=== PATIENT | male | born 1955 | race Caucasian/White ===

== ENCOUNTER → 2016-04-30 | Outpatient (CLI) | payer OTHER ==
--- NOTE | 2016-04-30 11:05 | XR ---
Cervical spine HISTORY: Neck pain 5 views of the cervical spine Correlation CT soft tissue neck third of September 2015 Spondylosis is present at C4-5, C5-6 and C6-7 with associated loss of disc height. Cervical vertebral bodies show preserved height and bone mineralization, alignment is near anatomic. Facet arthropathy changes are present. Prevertebral soft tissues are normal. Multilevel foraminal encroachment is prese nt bilaterally. IMPRESSION: Degenerative disc disease, foraminal encroachment, facet arthropathy.
== END ==
LOC: RADXRMAIN 09:19
PROVIDERS: ATTEND Family Medicine
DX: M50.30 Other cervical disc degeneration, unspecified cervical region (principal); M46.92 Unspecified inflammatory spondylopathy, cervical region
CPT/HCPCS: 72050

== ENCOUNTER → 2017-02-25 | Outpatient (CLI) | payer OTHER ==
--- NOTE | 2017-02-25 10:26 | US ---
EXAMINATION TYPE: US abdomen complete DATE OF EXAM: 02/25/2017 COMPARISON: US & CT CLINICAL HISTORY: D73.89 Other Disease of Spleen. History of splenic lesions EXAM MEASUREMENTS: Liver Length: 16.7 cm Gallbladder Wall: 0.3 cm CBD: 0.4 cm Spleen: 13.8 cm Right Kidney: 10.9 x 5.9 x 5.9 cm Left Kidney: 12.2 x 6.4 x 5.2 cm Large pt body habitus with excessive overlying bowel gas, difficult scan Pancreas: Obscured by bowel gas Liver: Limited visualization appeared wnl Gallbladder: Appeared wnl, best visualized in LLD position Evidence for sonographic Ann's sign: No CBD: wnl Spleen: Enlarged with multiple granulomas with 2 solid, hypoechoic lesions, both increased in size s terry previous 1)= 2.9 x 2.4 x 2.9 cm 2)= 1.7 x 1.5 x 1.5 cm Right Kidney: wnl Left Kidney: Questionable vague area lateral= 3.0 x 2.7 x 2.7 cm mass vs. Dromedary hump Upper IVC: wnl Abd Aorta: Proximal portion obscured by overlying bowel gas, mid and distal portions wnl The liver is homogenous. The intrahepatic portion of the IVC and proximal abdominal aorta are within normal limits. There is no evidence of cholelithiasis. Common bile duct is unremarkable. The visu alized portions of the pancreas are homogenous. Kidneys are symmetric and free of hydronephrosis. Pr obable dromedary hump of left kidney however this can be confirmed with CT. IMPRESSION: 1. Splenomegaly with multiple granulomas. Previously identified splenic lesions are not clearly galileo cterized at this time. Consider CT correlation. 2. Probable dromedary hump left kidney although I cannot exclude mass. Again CT would be of value.
== END | disposition home or self-care (01) ==
LOC: RADUSWWP 09:41
PROVIDERS: ATTEND Family Medicine
DX: R16.1 Splenomegaly, not elsewhere classified (principal); D73.89 Other diseases of spleen; Z88.1 Allergy status to other antibiotic agents
CPT/HCPCS: 76700

== ENCOUNTER 2017-04-24 08:56 | Inpatient (IN) | payer OTHER ==
[2017-04-24] MEDS ORDERED: MORPHINE SULFATE 4 MG/ML SYRINGE IVP STA (09:16)
[2017-04-24] MEDS ORDERED: RX INFO: IV CONTRAST WAS GIVEN 1 EACH MISC MISCELLANE PRN (09:16)
[2017-04-24] MEDS ORDERED: ONDANSETRON 4 MG/2 ML VIAL IVP STA (09:16)
[2017-04-24] MEDS ORDERED: SODIUM CHLORIDE 0.9% 1,000 ML IV STA (09:16)
[2017-04-24 10:01] LABS: Basophils % (A) 0 %; Eosinophils # (A) 0.1 k/uL (0-0.7); Eosinophils % (A) 0 %; HCT 47.2 % (39.0-53.0); HGB 15.6 gm/dL (13.0-17.5); Lymphocytes % (A) 9 %; MCH 30.3 pg (25.0-35.0); MCV 91.8 fL (80.0-100.0); Monocytes # (A) 0.5 k/uL (0-1.0); Monocytes % (A) 4 %; Neutrophils # (A) 9.1 k/uL (1.3-7.7); Neutrophils % (A) 86 %; Platelet Count 237 k/uL (150-450); RBC 5.14 m/uL (4.30-5.90); RDW 12.8 % (11.5-15.5); WBC 10.6 k/uL (3.8-10.6)
[2017-04-24 10:10] LABS: Prothrombin Time 9.6 sec (9.0-12.0)
[2017-04-24 10:15] LABS: ALT 27 U/L (21-72); AST 20 U/L (17-59); Albumin 4.4 g/dL (3.5-5.0); Alkaline Phosphatase 136 U/L (38-126); Amylase 85 U/L (30-110); Anion Gap 10 mmol/L; Blood Urea Nitrogen 18 mg/dL (9-20); Calcium 10.1 mg/dL (8.4-10.2); Carbon Dioxide 26 mmol/L (22-30); Chloride 106 mmol/L (98-107); Glucose 122 mg/dL (74-99); Lipase 107 U/L (23-300); Potassium 4.8 mmol/L (3.5-5.1); Sodium 142 mmol/L (137-145); Total Bilirubin 0.5 mg/dL (0.2-1.3); Total Protein 7.7 g/dL (6.3-8.2)
--- NOTE | 2017-04-24 10:22 | ED ---
Abdominal Pain HPI - General Chief Complaint: Abdominal Pain Stated Complaint: Abd Pain Time Seen by Provider: 04/24/17 08:59 Source: patient, EMS, RN notes reviewed Mode of arrival: EMS Limitations: no limitations - History of Present Illness Initial Comments: 61-year-old male presents emergency Department with chief complaint of abdominal pain. Patient's been having on and off issues for a while but states his pain is different. He states it's in his mid abdomen and feels like his prior obstructions. He does state he is passing gas and feels that he may need to go to the bathroom now. Patient denies any dysuria but has had urinary frequency. No nausea no vomiting. Denies fever or chills. Patient states he does have some lesions on his spleen in which she's had ultrasounds for. Patient states that they're thinking it may just be a hemangioma. Patient states that he saw a surgeon at [facility]. Patient also states that he is scheduled for an MRI. Patient denies any chest pain or shortness of breath. - Related Data Home Medications Medication Instructions Recorded Confirmed Aspirin EC [Ecotrin Low Dose] 81 mg PO DAILY 04/24/17 04/24/17 Cholecalciferol (Vitamin D3) 2,000 unit PO DAILY 04/24/17 04/24/17 [Vitamin D3] Valsartan [Diovan] 80 mg PO DAILY 04/24/17 04/24/17 Allergies Allergy/AdvReac Type Severity Reaction Status Date / Time amoxicillin AdvReac Diarrhea Verified 04/24/17 09:22 Review of Systems ROS Statement: Those systems with pertinent positive or pertinent negative responses have been documented in the HPI. ROS Other: All systems not noted in ROS Statement are negative. Past Medical History Past Medical History: CVA/TIA, GERD/Reflux, Sleep Apnea/CPAP/BIPAP Additional Past Medical History / Comment(s): ?TIA per pt, "leaky valves", SOB w /activity, recent hospitalization for partial bowel obstruction in [facility] History of Any Multi-Drug Resistant Organisms: None Reported Additional Past Surgical History / Comment(s): hiatal hernia repair Past Anesthesia/Blood Transfusion Reactions: No Reported Reaction Past Psychological History: No Psychological Hx Reported Smoking Status: Never smoker Past Alcohol Use History: Occasional Past Drug Use History: None Reported General Exam General appearance: alert, in no apparent distress Head exam: Present: atraumatic, normocephalic, normal inspection Eye exam: Present: normal appearance, PERRL, EOMI. Absent: scleral icterus, conjunctival injection, periorbital swelling Neck exam: Present: normal inspection, full ROM. Absent: tenderness, meningismus, lymphadenopathy Respiratory exam: Present: normal lung sounds bilaterally. Absent: respiratory distress, wheezes, rales, rhonchi, stridor Cardiovascular Exam: Present: regular rate, normal rhythm, normal heart sounds. Absent: systolic murmur, diastolic murmur, rubs, gallop, clicks GI/Abdominal exam: Present: soft, tenderness (Mild mid abdominal tenderness), normal bowel sounds. Absent: distended, guarding, rebound, rigid Back exam: Absent: CVA tenderness (R), CVA tenderness (L) Skin exam: Present: warm, dry, intact, normal color. Absent: rash Course Vital Signs 04/24/17 08:58 Temperature 97.5 F L Pulse Rate 71 Respiratory 19 Rate Blood Pressure 124/67 O2 Sat by Pulse 97 Oximetry Medical Decision Making - Lab Data Result diagrams: 04/24/17 09:40 04/24/17 09:40 Lab Results 04/24/17 04/24/17 04/24/17 Range/Units 09:40 09:40 09:40 WBC 10.6 (3.8-10.6) k/uL RBC 5.14 (4.30-5.90) m/uL Hgb 15.6 (13.0-17.5) gm/dL Hct 47.2 (39.0-53.0) % MCV 91.8 (80.0-100.0) fL MCH 30.3 (25.0-35.0) pg MCHC 33.0 (31.0-37.0) g/dL RDW 12.8 (11.5-15.5) % Plt Count 237 (150-450) k/uL Neutrophils % 86 % Lymphocytes % 9 % Monocytes % 4 % Eosinophils % 0 % Basophils % 0 % Neutrophils # 9.1 H (1.3-7.7) k/uL Lymphocytes # 1.0 (1.0-4.8) k/uL Monocytes # 0.5 (0-1.0) k/uL Eosinophils # 0.1 (0-0.7) k/uL Basophils # 0.0 (0-0.2) k/uL PT 9.6 (9.0-12.0) sec INR 1.0 (<1.2) APTT 23.0 (22.0-30.0) sec Sodium 142 (137-145) mmol/L Potassium 4.8 (3.5-5.1) mmol/L Chloride 106 (98-107) mmol/L Carbon Dioxide 26 (22-30) mmol/L Anion Gap 10 mmol/L BUN 18 (9-20) mg/dL Creatinine 1.00 (0.66-1.25) mg/dL Est GFR (CKD-EPI)AfAm >90 (>60 ml/min/1.73 sqM) Est GFR (CKD-EPI)NonAf 80 (>60 ml/min/1.73 sqM) Glucose 122 H (74-99) mg/dL Plasma Lactic Acid Kenny (0.7-2.0) mmol/L Calcium 10.1 (8.4-10.2) mg/dL Total Bilirubin 0.5 (0.2-1.3) mg/dL AST 20 (17-59) U/L ALT 27 (21-72) U/L Alkaline Phosphatase 136 H (38-126) U/L Total Protein 7.7 (6.3-8.2) g/dL Albumin 4.4 (3.5-5.0) g/dL Amylase 85 (30-110) U/L Lipase 107 (23-300) U/L 04/24/17 Range/Units 09:40 WBC (3.8-10.6) k/uL RBC (4.30-5.90) m/uL Hgb (13.0-17.5) gm/dL Hct (39.0-53.0) % MCV (80.0-100.0) fL MCH (25.0-35.0) pg MCHC (31.0-37.0) g/dL RDW (11.5-15.5) % Plt Count (150-450) k/uL Neutrophils % % Lymphocytes % % Monocytes % % Eosinophils % % Basophils % % Neutrophils # (1.3-7.7) k/uL Lymphocytes # (1.0-4.8) k/uL Monocytes # (0-1.0) k/uL Eosinophils # (0-0.7) k/uL Basophils # (0-0.2) k/uL PT (9.0-12.0) sec INR (<1.2) APTT (22.0-30.0) sec Sodium (137-145) mmol/L Potassium (3.5-5.1) mmol/L Chloride (98-107) mmol/L Carbon Dioxide (22-30) mmol/L Anion Gap mmol/L BUN (9-20) mg/dL Creatinine (0.66-1.25) mg/dL Est GFR (CKD-EPI)AfAm (>60 ml/min/1.73 sqM) Est GFR (CKD-EPI)NonAf (>60 ml/min/1.73 sqM) Glucose (74-99) mg/dL Plasma Lactic Acid Kenny 1.0 (0.7-2.0) mmol/L Calcium (8.4-10.2) mg/dL Total Bilirubin (0.2-1.3) mg/dL AST (17-59) U/L ALT (21-72) U/L Alkaline Phosphatase (38-126) U/L Total Protein (6.3-8.2) g/dL Albumin (3.5-5.0) g/dL Amylase (30-110) U/L Lipase (23-300) U/L Disposition Clinical Impression: Small bowel obstruction Disposition: ADMITTED IP TO THIS [facility] Condition: Stable Referrals: Jefferson Horowitz MD [Primary Care Provider] - 1-2 days
--- NOTE | 2017-04-24 10:41 | CT ---
EXAMINATION TYPE: CT abdomen pelvis w con DATE OF EXAM: 04/24/2017 COMPARISON: 11/22/2014 HISTORY: 61-year-old male complains of periumbilical pain, left flank pain, frequency urinating, loos e stool that has become constipation, and near syncope. TECHNIQUE: Contiguous axial scanning of the abdomen and pelvis following administration of 100 ml Omn ipaque 300 IV contrast. Delayed images through the kidneys and coronal/sagittal reconstructions perf ormed. CT DLP: 1751 mGycm Automated exposure control for dose reduction was used. FINDINGS: Heart is normal size without pericardial effusion. Some strandy atelectasis in the lower lungs. No pl eural effusion. Redemonstrated moderate-sized hernia. Hypervascular focus measuring 1.6 cm in the left lower lobe is unchanged suggesting an area of vascul ar shunting or flash filling hemangioma. Portal venous system is patent. No biliary ductal dilatation . Gallbladder, adrenal glands, kidneys, and pancreas appear within normal limits. Numerous calcified granulomas spleen. Round hypervascular lesions also within the spleen, approximate ly 3 measuring up to 2.5 cm following the blood pool on delayed kidney images suggesting hemangiomas, unchanged from 2014. Hilar splenule is present. Dilated small bowel loops measure up to 5.4 cm with air-fluid levels. There is a transition point in the posterior left upper to mid abdomen, axial image 26 and coronal im age 54 just anterior and inferior to the pancreatic tail level. The ileum beyond this level is collap sed. No free air or free fluid. Normal appendix. Some liquid stool within the colon. Diffuse colonic diverticulosis without pericolon ic inflammatory change. Bladder distended. Prostate gland measures 4.9 cm wide. No abnormal fluid collection the pelvis or pe lvic lymphadenopathy. Moderate-sized fat-containing indirect right inguinal hernia hernia. Partially visualized right-sided hydrocele. Bones: Degenerative changes at the SI joints. Endplate spondylosis lower thoracic spine. Hemangioma o f the L1 vertebral body. IMPRESSION: 1. HIGH-GRADE SMALL BOWEL OBSTRUCTION. TRANSITION POINT AT THE DISTAL THIRD SMALL BOWEL BUT LOCATED I N THE LEFT UPPER TO MID ABDOMEN AT THE LEVEL JUST BELOW AND ANTERIOR TO THE PANCREATIC TAIL. 2. SMALL BOWEL LOOPS ARE DILATED UP TO 5.4 CM. 3. COLONIC DIVERTICULOSIS WITHOUT ACUTE DIVERTICULITIS. 4. MODERATE-SIZED HERNIA, FLASH FILLING HEMANGIOMA LEFT LIVER LOBE, AND SUSPECT ADDITIONAL 3 HEMANGIO MAS IN THE SPLEEN, ALL STABLE FROM 2014. 4. MODERATE-SIZED FATTY INDIRECT RIGHT INGUINAL HERNIA.
[2017-04-24] MEDS ORDERED: ONDANSETRON 4 MG/2 ML VIAL IVP PRN (11:31)
[2017-04-24] MEDS ORDERED: NALOXONE 0.4 MG/ML 1 ML VIAL IV PRN (11:31)
[2017-04-24] MEDS ORDERED: MORPHINE SULFATE 4 MG/ML SYRINGE IV PRN (11:31)
[2017-04-24 14:28] VITALS: BMI 34.4
[2017-04-24] MEDS: PIPERACILLIN-TAZOBACTAM 3.375 GM in DEXTROSE/WATER 1 50ML.BAG IVPB SCH ×2 (14:36→23:14)
[2017-04-24] MEDS: SODIUM CHLORIDE 0.9% 1,000 ML IV SCH ×3 (14:37→16:20)
[2017-04-24 17:15] LABS: Appearance,Urine Clear (Clear); Bacteria,Urine Rare /hpf; Bilirubin,Urine Negative (Negative); Blood,Urine Negative (Negative); Color,Urine Yellow; Glucose,Urine (UA) Negative (Negative); Ketones,Urine Negative (Negative); Leukocyte Esterase,Urine Negative (Negative); Mucus,Urine Few /hpf; Nitrite,Urine Negative (Negative); PH, Urine 5.5 (5.0-8.0); Protein,Urine 1+ (Negative); RBC,Urine 1 /hpf (0-5); Urobilinogen,Urine <2.0 mg/dL (<2.0); WBC,Urine 1 /hpf (0-5)
[2017-04-24 17:18] LABS: Specific Gravity,Urine >1.050 (1.001-1.035)
[2017-04-24 17:21] LABS: Glucose,Whole Blood 93 mg/dL (75-99)
[2017-04-24] MEDS ORDERED: KETOROLAC 30 MG/ML 1 ML VIAL IVP PRN (20:46)
[2017-04-24] MEDS ORDERED: KETOROLAC 60 MG/2 ML VIAL IVP STA (20:48)
[2017-04-24] MEDS ORDERED: KETOROLAC 30 MG/ML 1 ML VIAL IVP STA (21:03)
[2017-04-24 21:07] LABS: Glucose,Whole Blood 99 mg/dL (75-99)
[2017-04-25] MEDS: SODIUM CHLORIDE 0.9% 1,000 ML IV SCH ×4 (00:46→18:51)
--- NOTE | 2017-04-25 07:25 | P.GSCN ---
History of Present Illness Consult date: 04/25/17 History of present illness: 61-year-old male presented to the emergency department complaining of severe abdominal pain. He states that he was also having a lot of flatus at that time. He denies any nausea or any emesis episodes. He states that he has had obstructive symptoms in the past and this felt similar. He states in the past he has had NG tube placed with success of resolving his obstruction. Upon arriving in the emergency department the patient stated he had a large bowel movement that was mostly liquid. He did have a CT of the abdomen that was performed that did show a small bowel obstructive process. He did refuse a NG tube during this admission. Since his admission, the patient states he has had 4 additional bowel movements. He states that his abdominal pain is relieved. He states his distention is now relieved. He denies feeling any fevers, chills , chest pain or shortness of breath. The patient states that he has had a previous surgery of a hiatal hernia repair in the past. He states that he also has been found to have a hemangioma of the spleen. He was scheduled for an MRI on 04/26/2017 to follow the size of this area and will have the MRI as an inpatient due to his admission. He states his last colonoscopy was 3 years ago. Review of Systems All systems: negative Past Medical History Past Medical History: GERD/Reflux, Sleep Apnea/CPAP/BIPAP Additional Past Medical History / Comment(s): Past bowel obstructions, spleen lesions pt has been seen at [facility] and they are thought to be hemangiomas-to have MRI this Friday at [facility], [facility] with CPAP, chronic low back pain, bilateral leg varicosities, gastritis, diverticulitis, benign colon polypectomies, "leaky valves", SOB w/activity, History of Any Multi-Drug Resistant Organisms: None Reported Additional Past Surgical History / Comment(s): hiatal hernia repair, 2013 EGD with bx, colonoscopies/benign polypectomies Past Anesthesia/Blood Transfusion Reactions: No Reported Reaction Smoking Status: Former smoker - Past Family History Father Family Medical History: No Reported History Additional Family Medical History / Comment(s): Father is healthy and is 92 yrs old. Mother Family Medical History: No Reported History Additional Family Medical History / Comment(s): Mother is healthy and is 90yrs. Medications and Allergies Home Medications Medication Instructions Recorded Confirmed Type Aspirin EC [Ecotrin Low Dose] 81 mg PO DAILY 04/24/17 04/24/17 History Cholecalciferol (Vitamin D3) 2,000 unit PO DAILY 04/24/17 04/24/17 History [Vitamin D3] Valsartan [Diovan] 80 mg PO DAILY 04/24/17 04/24/17 History Allergies Allergy/AdvReac Type Severity Reaction Status Date / Time amoxicillin AdvReac Diarrhea Verified 04/24/17 09:22 Surgical - Exam Osteopathic Statement: *. No significant issues noted on an osteopathic structural exam other than those noted in the History and Physical/Consult. Vital Signs Temp Pulse Resp BP Pulse Ox 97.5 F L 71 19 124/67 97 04/24/17 08:58 04/24/17 08:58 04/24/17 08:58 04/24/17 08:58 04/24/17 08:58 - General well nourished, no distress - Eyes PERRL - ENT no hearing loss - Neck no masses, trachea midline - Respiratory No difficulty with respiration - Abdomen Soft, nontender, nondistended, no rebound, no guarding - Neurologic normal sensation - Psychiatric oriented to time, oriented to person, oriented to place Results - Labs 04/24/17 09:40 04/24/17 09:40 Abnormal Lab Results - Last 24 Hours (Table) 04/24/17 04/24/17 04/24/17 Range/Units 09:40 09:40 15:48 Neutrophils # 9.1 H (1.3-7.7) k/uL Glucose 122 H (74-99) mg/dL Alkaline Phosphatase 136 H (38-126) U/L Ur Specific [place] >1.050 H (1.001-1.035) Urine Protein 1+ H (Negative) Urine Bacteria Rare H (None) /hpf Urine Mucus Few H (None) /hpf Diabetes panel 04/24/17 Range/Units 09:40 Sodium 142 (137-145) mmol/L Potassium 4.8 (3.5-5.1) mmol/L Chloride 106 (98-107) mmol/L Carbon Dioxide 26 (22-30) mmol/L BUN 18 (9-20) mg/dL Creatinine 1.00 (0.66-1.25) mg/dL Glucose 122 H (74-99) mg/dL Calcium 10.1 (8.4-10.2) mg/dL AST 20 (17-59) U/L ALT 27 (21-72) U/L Alkaline Phosphatase 136 H (38-126) U/L Total Protein 7.7 (6.3-8.2) g/dL Albumin 4.4 (3.5-5.0) g/dL Calcium panel 04/24/17 Range/Units 09:40 Calcium 10.1 (8.4-10.2) mg/dL Albumin 4.4 (3.5-5.0) g/dL Pituitary panel 04/24/17 Range/Units 09:40 Sodium 142 (137-145) mmol/L Potassium 4.8 (3.5-5.1) mmol/L Chloride 106 (98-107) mmol/L Carbon Dioxide 26 (22-30) mmol/L BUN 18 (9-20) mg/dL Creatinine 1.00 (0.66-1.25) mg/dL Glucose 122 H (74-99) mg/dL Calcium 10.1 (8.4-10.2) mg/dL Adrenal panel 04/24/17 Range/Units 09:40 Sodium 142 (137-145) mmol/L Potassium 4.8 (3.5-5.1) mmol/L Chloride 106 (98-107) mmol/L Carbon Dioxide 26 (22-30) mmol/L BUN 18 (9-20) mg/dL Creatinine 1.00 (0.66-1.25) mg/dL Glucose 122 H (74-99) mg/dL Calcium 10.1 (8.4-10.2) mg/dL Total Bilirubin 0.5 (0.2-1.3) mg/dL AST 20 (17-59) U/L ALT 27 (21-72) U/L Alkaline Phosphatase 136 H (38-126) U/L Total Protein 7.7 (6.3-8.2) g/dL Albumin 4.4 (3.5-5.0) g/dL - Imaging CT scan - abdomen: report reviewed, image reviewed CT scan - pelvis: report reviewed, image reviewed Assessment and Plan (1) Small bowel obstruction Narrative/Plan: The small bowel obstruction seems to be relieving with 4 bowel movements. The patient states he feels much better and has much decreased distention. He is scheduled for an MRI this morning and is required to be nothing by mouth for this exam. After this is completed, we will advance him to a clear liquid diet and likely advance his diet as tolerated. No plan for acute surgical intervention at this time. We will continue to follow. Thank you for this consultation. We look forward in providing in this patient' s care. Current Visit: Yes Status: Acute Code(s): K56.609 - UNSP INTESTNL OBST, UNSP TO PARTIAL VERSUS COMPLETE OBST SNOMED Code(s): 938805918
[2017-04-25] MEDS: PIPERACILLIN-TAZOBACTAM 3.375 GM in DEXTROSE/WATER 1 50ML.BAG IVPB SCH (07:30)
[2017-04-25] MEDS: PANTOPRAZOLE 40 MG/10 ML VIAL IVP SCH (07:30)
--- NOTE | 2017-04-25 10:06 | P.HPIM ---
<Clair Cervantes - Last Filed: 04/25/17 10:05> History of Present Illness H&P Date: 04/25/17 Chief Complaint: abdominal pain 61-year-old male who presented to the emergency room with a chief complaint of abdominal pain. The patient has a history of previous bowel obstructions and describes the pain to be similar as those previous experiences. the patient states he has been passing gas. While in the emergency room, he did have a loose bowel movement. A NG tube was ordered but the patient refused. Patient denies chest pain or pressure. Denies shortness of breath. Denies nausea or vomiting. Denies fever. Denies recent weight loss. The patient has a history of previous bowel obstructions, obstructive sleep apnea requiring CPAP, chronic low back pain, gastritis, diverticulitis, hiatal hernia repair, and gastroesophageal reflux disease. Patient also has a history of some lesions on his spleen that were thought to be hemangiomas. The patient was scheduled for an MRI this Friday, which we will complete during this hospital admission. CT scan of abdomen and pelvis: High-grade small bowel obstruction. Transition point at the distal third small bowel but located in the left upper to mid abdomen at the level just below and anterior to the pancreatic tail. Colonic diverticulosis without acute diverticulitis. Moderate sized hernia, flash filling hemangioma left liver lobe and suspect additional 3 hemangiomas in the spleen. Moderate sized indirect right inguinal hernia. Laboratory data: WBC 10.6. Hemoglobin 15.6. Platelet count 237. Sodium 142. Potassium 4.8. BUN 18. Creatinine 1.00. GFR 80. Glucose 122. Lactic acid 1.0 The patient was admitted to the hospital under the care of Dr. Gray. Consultations were placed to Dr. Aguilar. Review of Systems GENERAL: Patient denies fever. Denies chills. EYES: Denies blurred vision. Denies vision changes. Denies eye pain. EARS, NOSE, MOUTH, & THROAT: Denies headache. Denies sore throat. Denies ear pain. RESPIRATORY: Denies cough. Denies shortness of breath. Denies sputum production. Denies hemoptysis. CARDIOVASCULAR: Denies chest pain or pressure. Denies palpitations. Denies arrhythmias. GASTROINTESTINAL: Positive for abdominal pain, which is resolving. Denies diarrhea. Denies constipation. Denies nausea. Denies vomiting. Denies heartburn. Denies blood in the stool. GENITOURINARY: Denies urinary frequency. Denies burning. Denies dysuria. Denies cloudy urine. Denies blood in the urine. MUSCULOSKELETAL: Denies myalgias. Denies joint swelling. Denies decreased range of motion beyond patients baseline. INTEGUMENTARY: Denies pruitis. Denies rash. PSYCHIATRIC: Denies suicidal or homicial ideations. ENDOCRINE: Denies weight change. Denies polydipsia. Denies polyuria. HEMATOLOGIC: Denies bleeding disorders. Past Medical History Past Medical History: GERD/Reflux, Sleep Apnea/CPAP/BIPAP Additional Past Medical History / Comment(s): Past bowel obstructions, spleen lesions pt has been seen at [facility] and they are thought to be hemangiomas-to have MRI this Friday at [facility], VINICIUS with CPAP, chronic low back pain, bilateral leg varicosities, gastritis, diverticulitis, benign colon polypectomies, "leaky valves", SOB w/activity, History of Any Multi-Drug Resistant Organisms: None Reported Additional Past Surgical History / Comment(s): hiatal hernia repair, 2013 EGD with bx, colonoscopies/benign polypectomies Past Anesthesia/Blood Transfusion Reactions: No Reported Reaction Smoking Status: Former smoker - Past Family History Father Family Medical History: No Reported History Additional Family Medical History / Comment(s): Father is healthy and is 92 yrs old. Mother Family Medical History: No Reported History Additional Family Medical History / Comment(s): Mother is healthy and is 90yrs. Medications and Allergies Home Medications Medication Instructions Recorded Confirmed Type Aspirin EC [Ecotrin Low Dose] 81 mg PO DAILY 04/24/17 04/24/17 History Cholecalciferol (Vitamin D3) 2,000 unit PO DAILY 04/24/17 04/24/17 History [Vitamin D3] Valsartan [Diovan] 80 mg PO DAILY 04/24/17 04/24/17 History Allergies Allergy/AdvReac Type Severity Reaction Status Date / Time amoxicillin AdvReac Diarrhea Verified 04/24/17 09:22 Physical Exam Vitals: Vital Signs Temp Pulse Pulse Resp BP BP Pulse Ox 04/25/17 07:35 79 18 04/25/17 07:00 96.7 F L 79 18 126/68 98 04/24/17 23:00 97.9 F 90 18 124/69 94 L 04/24/17 15:30 83 16 04/24/17 14:16 97.1 F L 83 16 105/61 94 L 04/24/17 13:03 98.4 F 76 20 118/62 100 04/24/17 08:58 97.5 F L 71 19 124/67 97 Intake and Output 04/24/17 04/25/17 04/25/17 22:59 06:59 14:59 Intake Total 0 0 Balance 0 0 Intake: Oral 0 0 Other: Voiding Method Toilet Toilet Toilet # Voids 1 0 0 # Bowel Movements 2 2 Weight 108.862 kg 108.862 kg 108.862 kg GENERAL: This is a 61-year-old male in no apparent distress at the time of examination. Pleasant and cooperative. HEENT: Head is atraumatic, normocephalic. Pupils are equal, round, and reactive to light. Sclerae anicteric. Conjunctivae are clear. Mucus membranes of the mouth are moist. Neck is supple. RESPIRATORY: Clear to ausculation. No wheezes, rales, or rhonchi. No use of accessory muscles. Patient maintaining oxygen saturation greater than 92%. No chest wall tenderness is noted on palpation or with deep breathing. CARDIOVASCULAR: Regular rate and rhythm. S1 and S2 noted. No systolic or diastolic murmur auscultated. No JVD noted. No S3 or S4 noted. GASTROINTESTINAL: Mild abdominal distention, improving. Abdomen soft and round. Normal active bowel sounds auscultated x 4 quadrants. No pain or tenderness noted upon palpation. INTEGUMENTARY: No cyanosis. No jaundice. No rashes noted. No cellulitis noted. EXTREMITIES: 2+ peripheral pulses. No evidence of peripheral edema. No calf tenderness noted. NEUROLOGIC: Cranial nerves II-XII intact. PSYCHIATRIC: Awake, alert, and oriented X 3. Appropriate affect. Intact judgement and insight. Results CBC & Chem 7: 04/24/17 09:40 04/24/17 09:40 Labs: Abnormal Lab Results - Last 24 Hours (Table) 04/24/17 04/24/17 04/24/17 Range/Units 09:40 09:40 15:48 Neutrophils # 9.1 H (1.3-7.7) k/uL Glucose 122 H (74-99) mg/dL Alkaline Phosphatase 136 H (38-126) U/L Ur Specific Shannon >1.050 H (1.001-1.035) Urine Protein 1+ H (Negative) Urine Bacteria Rare H (None) /hpf Urine Mucus Few H (None) /hpf Thrombosis Risk Factor Assmnt - Choose All That Apply Any of the Below Risk Factors Present?: Yes Each Factor Represents 1 point: Obesity (BMI >25) Other Risk Factors: Yes Each Risk Factor Represents 2 Points: Age 61-74 years Other congenital or acquired thrombophilia - If yes, enter type in comment: No Thrombosis Risk Factor Assessment Total Risk Factor Score: 3 Thrombosis Risk Factor Assessment Level: Moderate Risk Assessment and Plan Plan: ASSESSMENT: Small bowel obstruction, present on admission, resolving, patient with BM x 4 and resolution of abdominal distention and pain History of previous bowel obstructions Splenic lesions, suspected hemangiomas Sleep apnea requiring CPAP Diverticulosis, no evidence of acute diverticulitis Gastroesophageal reflux disease History of nicotine dependence, in remission, patient is a former cigarette smoker Obesity: BMI 34.4 PLAN: Gen. surgery on consult. Appreciate recommendations and input No surgical intervention at this time. Patient scheduled for MRI of the abdomen which was originally scheduled to be completed outpatient tomorrow Patient may begin clear liquid diet after his MRI Continue IV fluids at 100 mL an hour Home meds as appropriate Monitor labs GI prophylaxis: Protonix 40 IV PO Daily DVT prophylaxis: Venodyne's to bilateral lower extremities Monitor vital signs and address as appropriate Discharge planning: Patient to return home when stable Further recommendations pending patient's course Possible discharge home tomorrow Nurse practitioner note has been reviewed by physician. Signing provider agrees with the documented findings, assessment, and plan of care. <Garret Gray Jr - Last Filed: 04/26/17 08:34> Physical Exam Osteopathic Statement: *. No significant issues noted on an osteopathic structural exam other than those noted in the History and Physical/Consult. Vitals: Vital Signs Temp Pulse Resp BP Pulse Ox 04/26/17 07:00 97.7 F 91 16 114/68 92 L 04/25/17 23:00 97.8 F 91 16 123/74 95 04/25/17 15:56 79 18 04/25/17 15:27 79 18 04/25/17 15:00 99.0 F 84 20 122/72 95 Intake and Output 04/25/17 04/26/17 04/26/17 22:59 06:59 14:59 Intake Total 350 Balance 350 Intake: Oral 350 Other: Voiding Method Toilet # Voids 1 0 Weight 108.862 kg Results CBC & Chem 7: 04/24/17 09:40 04/24/17 09:40 Labs: Abnormal Lab Results - Last 24 Hours (Table) 04/25/17 Range/Units 11:42 POC Glucose (mg/dL) 116 H (75-99) mg/dL
[2017-04-25 12:00] LABS: Glucose,Whole Blood 116 mg/dL (75-99)
[2017-04-25] MEDS: ASPIRIN 81 MG PO SCH (12:35)
[2017-04-25] MEDS: VALSARTAN 80 MG TAB PO SCH (12:35)
[2017-04-25] MEDS: CHOLECALCIFEROL 1,000 UNIT TAB PO SCH (12:35)
--- NOTE | 2017-04-25 19:02 | MR ---
EXAMINATION TYPE: MR abdomen wo/w con DATE OF EXAM: 04/25/2017 COMPARISON: NONE HISTORY: ab pain/ hx angioma CONTRAST: Standard multiplanar, multisequence MRI departmental protocol utilizing 10 mL intravenous Gadavist ga dolinium contrast. FINDINGS: Heart is normal size without pericardial effusion. Some strandy atelectasis in the lower vivian ngs. No pleural effusion. Right lower lobe granuloma noted. Redemonstrated moderate-sized hernia. Numerous calcified granulomas spleen. Round hypervascular lesions also within the spleen, approximate ly 3 measuring up to 2.5 cm following the blood pool on delayed kidney images suggesting hemangiomas, unchanged from 2015. Hilar splenule is present. Hypervascular focus measuring 1.6 cm in the left lower lobe is unchanged suggesting an area of vascul ar shunting or flash filling hemangioma. Portal venous system is patent. No biliary ductal dilatation. Gallbladder, adrenal glands, kidneys, a nd pancreas appear within normal limits. Dilated small bowel loops measure up to 5.4 cm with air-fluid levels. Bones: Degenerative changes at the SI joints. Endplate spondylosis lower thoracic spine. Hemangioma o f the L1 vertebral body. IMPRESSION: 1. FLASH FILLING HEMANGIOMA LEFT LOBE LIVER 2. ADDITIONAL 3 HEMANGIOMAS IN THE SPLEEN, ALL STABLE FROM 2015. 3. DILATED SMALL BOWEL CORRELATE FOR SMALL BOWEL OBSTRUCTION OR ENTERITIS.
[2017-04-25] MEDS ORDERED: MORPHINE ORAL SOLN 10 MG/5 ML CUP PO PRN (19:49)
[2017-04-25 23:24] VITALS: PULSE 91; RESP 16
[2017-04-26] MEDS: SODIUM CHLORIDE 0.9% 1,000 ML IV SCH ×2 (03:50→13:06)
[2017-04-26 07:42] VITALS: BP 114/68; TEMP 97.7
[2017-04-26] MEDS: VALSARTAN 80 MG TAB PO SCH (08:50)
[2017-04-26] MEDS: ASPIRIN 81 MG PO SCH (08:50)
[2017-04-26] MEDS: CHOLECALCIFEROL 1,000 UNIT TAB PO SCH (08:50)
[2017-04-26] MEDS ORDERED: PANTOPRAZOLE 40 MG TABLET PO SCH (09:15)
--- NOTE | 2017-04-26 10:05 | P.PN ---
Subjective Progress Note Date: 04/26/17 Patient seen and examined at bedside. States he is feeling better. Tolerating a regular diet. Continues to have bowel function. Objective - Vital Signs Vital signs: Vital Signs Temp 97.7 F 04/26/17 07:00 Pulse 91 04/26/17 07:00 Resp 16 04/26/17 07:00 BP 114/68 04/26/17 07:00 Pulse Ox 92 L 04/26/17 07:00 Intake & Output 04/25/17 04/26/17 04/26/17 18:59 06:59 18:59 Intake Total 850 Balance 850 Weight 108.862 kg Intake: Oral 850 Other: Voiding Method Toilet # Voids 3 0 - Constitutional General appearance: Present: cooperative, no acute distress - EENT ENT: Present: hearing grossly normal - Respiratory Details: No difficulty with respiration - Gastrointestinal Gastrointestinal Comment(s): Soft, nontender, nondistended, no rebound, no guarding - Psychiatric Psychiatric: Present: A&O x's 3, appropriate affect - Labs CBC & Chem 7: 04/24/17 09:40 04/24/17 09:40 Labs: Abnormal Lab Results - Last 24 Hours (Table) 04/25/17 Range/Units 11:42 POC Glucose (mg/dL) 116 H (75-99) mg/dL Assessment and Plan (1) Small bowel obstruction Narrative/Plan: - Small bowel obstruction improving, having bowel function and tolerating diet - Did have inpatient MRI, stable hemangiomas of splenic and 3 cm hemangioma of liver, the patient will need continued outpatient follow-up secondary to these hemangiomas - Surgically stable for discharge Current Visit: Yes Status: Acute Code(s): K56.609 - UNSP INTESTNL OBST, UNSP TO PARTIAL VERSUS COMPLETE OBST SNOMED Code(s): 769873818
[2017-04-26] MEDS: PANTOPRAZOLE 40 MG/10 ML VIAL IVP SCH (11:11)
== END 2017-04-26 14:31 | disposition home or self-care (01) | DRG 390 ==
LOC: EC 08:56 → 4MS4W 12:16
PROVIDERS: ADMIT Family Medicine; ATTEND Family Medicine
DX: K56.609 Unspecified intestinal obstruction, unspecified as to partial versus complete obstruction (principal); D18.03 Hemangioma of intra-abdominal structures; E66.9 Obesity, unspecified; G47.33 Obstructive sleep apnea (adult) (pediatric); K21.9 Gastro-esophageal reflux disease without esophagitis; K40.90 Unilateral inguinal hernia, without obstruction or gangrene, not specified as recurrent; K57.30 Diverticulosis of large intestine without perforation or abscess without bleeding; Z79.899 Other long term (current) drug therapy; Z86.73 Personal history of transient ischemic attack (TIA), and cerebral infarction without residual deficits; Z87.891 Personal history of nicotine dependence; Z88.0 Allergy status to penicillin; G89.29 Other chronic pain; M54.9 Dorsalgia, unspecified; Z68.30 Body mass index [BMI] 30.0-30.9, adult
CPT/HCPCS: 36415; 74177; 74183; 80053; 81001; 82150; 83605; 83690; 85025; 85610; 85730; 96361; 96374; 96375; 99285

== ENCOUNTER → 2018-01-12 | Outpatient (CLI) | payer OTHER | END | disposition home or self-care (01) | LOC: RADXRMAIN 12:13 | PROVIDERS: ATTEND Family Medicine | DX: Z53.9 Procedure and treatment not carried out, unspecified reason (principal) ==

== ENCOUNTER → 2018-01-20 | Outpatient (CLI) | payer OTHER ==
--- NOTE | 2018-01-20 22:46 | CONS ---
CONSULTATION DATE OF SERVICE: 01/20/2018. REASON FOR CONSULTATION: Sleep apnea. HISTORY: Sj is 62, diagnosed having obstructive sleep apnea through the [facility] at [facility]. The patient was given an Flora View full-face mask and his CPAP was set at a pressure of 15 cm of water. He has a new generation ResMed unit. He wanted to establish himself in my office and he wanted to follow up for his CPAP needs through my office. For now he is successfully treated. I am going to follow up his original polysomnogram that was done at [facility]. For now he has no snoring. No major hypersomnia or sleepiness during the day. No snoring while on CPAP unit. He goes to bed around 10:30 p.m., wakes up 7:00 a.m. in the morning, quite refreshed and alert. His Banks score is only at 3. No recent weight gain or weight loss. No dry mouth in the morning. No anxiety or panic attacks. No nocturnal heartburn. No episodes of gasping for air. No restlessness in the lower extremities. PAST MEDICAL HISTORY: Hypertension. PAST SURGICAL HISTORY: Includes hiatal hernia. ALLERGIES: AMOXICILLIN. MEDICATIONS: Glucosamine chondroitin. SOCIAL HISTORY: Nonsmoker, no excessive alcohol, no IV drugs. FAMILY HISTORY: Father has asbestosis, coronary artery disease, hyperlipidemia, hypertension. REVIEW OF SYSTEMS: 12-point review of system was done. Positive findings are mentioned above in the History of Present Illness. PHYSICAL EXAMINATION: His current vitals, BP is 129/64, pulse 94, respirations 14, temperature 98.3, saturation 97% on room air. Banks score is a 3, BMI 33.3, weight is 226. Height is 5 feet 9 inches. GENERAL APPEARANCE: Calm, comfortable. HEAD: Atraumatic, normocephalic. NECK: Supple. No JVD. No goiter or neck masses. LUNGS: Diminished, otherwise clear. HEART: Sounds regular rhythm. Normal S1, S2. No S3, S4. No murmurs. ABDOMEN: Soft, nontender. No organomegaly. EXTREMITIES: No edema, cyanosis or clubbing. IMPRESSION: Obstructive sleep apnea. Currently on CPAP therapy. Treatment seems to be successful. We will check his CPAP unit. We will get the original documentation on his sleep apnea from [facility]. PLAN: Continue CPAP therapy. The patient was given an Flora View full-face mask. He was also given a DreamWear fullface mask. The first one is a large size, second one is a medium size. He will continue CPAP therapy. We will see him back in my office in 6 to 8 weeks time and by that time he should be able to bring up his CPAP unit for me to check his compliance data. I am going to follow up his records from [facility] for review. Further recommendations are to follow if needed. MMALOKL / IJN: [id number] /
== END ==
LOC: SLEEP 15:47
PROVIDERS: ATTEND Internal Medicine Critical Care Medicine
DX: G47.33 Obstructive sleep apnea (adult) (pediatric) (principal); Z99.89 Dependence on other enabling machines and devices; Z79.899 Other long term (current) drug therapy; Z88.0 Allergy status to penicillin
CPT/HCPCS: 99211

== ENCOUNTER → 2018-01-21 | Outpatient (CLI) | payer OTHER ==
--- NOTE | 2018-01-21 11:48 | CT ---
EXAMINATION TYPE: CT posterior fossa wo con DATE OF EXAM: 01/21/2018 COMPARISON: CT soft tissue neck dated 09/13/2015 HISTORY: Patient complains of headache and neck pain x [address] DLP: 273 mGycm. Automated Exposure Control for Dose Reduction was Utilized. TECHNIQUE: CT scan of internal auditory canal is performed without contrast, thin cut axial images ar e obtained, coronal reformatted images are also reviewed. FINDINGS: The mastoid air cells are well aerated bilaterally. No middle ear cavity fluid is seen. The external auditory canals are patent bilaterally. There is scant mucosal thickening within the bilateral maxillary sinuses and mild mucosal thickening of the visualized ethmoid sinuses extending into the left frontal sinus. The sphenoid sinus appears w ell aerated. Partial visualization of a dental filling on the right. There is no evidence of suspicious surrounding soft tissue density to suggest cholesteatoma. The scu sal is preserved bilaterally. The cochlea and the semicircular canals are symmetric and unremarkable . Vestibular aqueduct and internal carotid canal appear unremarkable. Temporomandibular joints are maintained bilaterally. Atherosclerosis is noted of the intracranial vas culature. Visualized portions of the posterior fossa are grossly unremarkable. Coronary calcification is incidentally noted. IMPRESSION: 1. Mild paranasal sinus disease within the visualized ethmoid, maxillary, and frontal sinuses. 2. No opacification within the mastoid air cells are middle ear cavities.
== END | disposition home or self-care (01) ==
LOC: RADCTMAIN 08:12
PROVIDERS: ATTEND Family Medicine
DX: J32.0 Chronic maxillary sinusitis (principal); J32.1 Chronic frontal sinusitis; J32.2 Chronic ethmoidal sinusitis; Z88.0 Allergy status to penicillin
CPT/HCPCS: 70480

== ENCOUNTER → 2018-03-13 | Outpatient (CLI) | payer OTHER ==
--- NOTE | 2018-03-13 15:35 | XR ---
EXAMINATION TYPE: XR cervical spine comp DATE OF EXAM: 03/13/2018 TECHNIQUE: Frontal, lateral, oblique, and open mouth view of the cervical spine are obtained. HISTORY: M54.2 neck pain COMPARISON: Cervical spine x-ray April 30, 2016 FINDINGS: The cervical spine is visualized in its entirety from C1 thru the top of T1 level, it is s table and satisfactory in alignment without evidence of acute fracture or dislocation. The pre-verte bral soft tissue appears within normal limits. The C1-C2 articulation is within normal limits on the open mouth view. Vertebral body heights are maintained. There is mild disc space narrowing and anter ior spurring C4-C5 level. There is moderate disc space narrowing and moderate to severe anterior spur ring C5-C6 and C6-C7 levels redemonstrated. The oblique images are within normal limits. Overlying so ft tissue is unremarkable. IMPRESSION: As above, no significant change from prior study.
== END | disposition home or self-care (01) ==
LOC: RADXRMAIN 14:40
PROVIDERS: ATTEND Family Medicine
DX: M48.02 Spinal stenosis, cervical region (principal); M46.02 Spinal enthesopathy, cervical region
CPT/HCPCS: 72050

== ENCOUNTER → 2019-04-27 | Outpatient (CLI) | payer MEDICARE, OTHER | END | disposition home or self-care (01) | LOC: CPPFTMAIN 10:14 | PROVIDERS: ATTEND Family Medicine | DX: Z53.9 Procedure and treatment not carried out, unspecified reason (principal) ==

== ENCOUNTER 2020-04-25 10:57 | Day surgery (SDC) | payer MEDICARE, OTHER ==
[2020-04-24 08:42] VITALS: BMI 34.4
[~2020-04-25 10:57] MED LIST: LACTATED RINGERS 1,000 ML IV SCH; LIDOCAINE 1% (10MG/ML) FOR IV START INTRADERMA PRN
[2020-04-25] MEDS ORDERED: LACTATED RINGERS 1,000 ML IV ONE (11:14)
[2020-04-25 11:18] VITALS: TEMP 97.8
[2020-04-25] MEDS ORDERED: PROPOFOL 10 MG/ML 20 ML VIAL IV ONE (11:52)
--- NOTE | 2020-04-25 11:57 | P.GSHP ---
History of Present Illness H&P Date: 04/25/20 Chief Complaint: Rectal bleeding 64-year-old male here today for colonoscopy. History of frequent blood with wiping however recently has had some heavier rectal bleeding and some constipation. Last colonoscopy 9 years ago. No family history of colon cancer. Past Medical History Past Medical History: GERD/Reflux, Hypertension, Prostate Disorder, Sleep Apnea/CPAP/BIPAP Additional Past Medical History / Comment(s): Past bowel obstructions, hemangiomas on spleen, migraines, VINICIUS with CPAP, chronic low back pain, varicose veins, gastritis, diverticuliitis, colon polyps, BPH, leaky heart valves., SOB w/activity, recent episodes of constipation and blood in stool. History of Any Multi-Drug Resistant Organisms: None Reported Additional Past Surgical History / Comment(s): hiatal hernia repair, 2013 EGD with bx, colonoscopies/benign polypectomies Past Anesthesia/Blood Transfusion Reactions: No Reported Reaction Past Psychological History: Unable to Obtain Additional Psychological History / Comment(s): spouse states possible anxiety and depression Smoking Status: Former smoker Past Alcohol Use History: Occasional Additional Past Alcohol Use History / Comment(s): hx of social smoker, quit over 10 yrs ago per spouse Past Drug Use History: None Reported - Past Family History Father Family Medical History: Cancer Additional Family Medical History / Comment(s): ?bladder cancer Mother Family Medical History: No Reported History, Cancer Additional Family Medical History / Comment(s): skin cancer Brother(s) Family Medical History: Cancer Additional Family Medical History / Comment(s): skin cancer Medications and Allergies Home Medications Medication Instructions Recorded Confirmed Type Cholecalciferol (Vitamin D3) 2,000 unit PO DAILY 04/24/17 04/24/20 History [Vitamin D3] Albuterol Sulfate [Ventolin HFA] 1 - 2 puff INHALATION Q6H PRN 04/24/20 04/24/20 History Losartan Potassium 100 mg PO DAILY 04/24/20 04/24/20 History Sumatriptan (Unknown Dose) 1 dose PO DIRECTED PRN 04/24/20 04/24/20 History Allergies Allergy/AdvReac Type Severity Reaction Status Date / Time amoxicillin AdvReac Diarrhea Verified 04/24/20 08:17 Surgical - Exam Vital Signs Temp Pulse Resp BP Pulse Ox 97.8 F 92 18 135/77 94 L 04/25/20 11:10 04/25/20 11:10 04/25/20 11:10 04/25/20 11:10 04/25/20 11:10 Physical exam: General: Well-developed, well-nourished HEENT: Normocephalic, sclerae nonicteric Abdomen: Nontender, nondistended Extremities: No edema Neuro: Alert and oriented Assessment and Plan (1) Rectal bleeding Narrative/Plan: Will proceed with colonoscopy Current Visit: Yes Status: Acute Code(s): K62.5 - HEMORRHAGE OF ANUS AND RECTUM SNOMED Code(s): 36139181
--- NOTE | 2020-04-25 12:16 | P.PCN ---
Date of Procedure: 04/25/20 Procedure(s) Performed: PREOPERATIVE DIAGNOSIS: Rectal bleeding POSTOPERATIVE DIAGNOSIS: Extensive diverticulosis, poor colonic prep, perianal fistula, transverse colon polyp PROCEDURE: Colonoscopy with biopsy ANESTHESIA: MAC SURGEON: Charles Arita M.D. SPECIMENS: Transverse colon polyp ENDOSCOPIC PROCEDURE: The patient was placed on the endoscopy table in the left decubitus position. The Olympus colonoscope was inserted into the anus and passed under direct visualization to the proximal transverse colon. We could not advance any further given the patient's poor prep and tortuosity. The scope was slowly withdrawn. In the mid transverse colon a small polyp was seen and removed using the cold biopsy forceps. The remainder of the transverse descending sigmoid and rectum had no inflammatory changes or polypoid lesions however the patient's prep was quite poor with retained solid stool seen s cattered throughout the colon. Polyps were lesions may have been missed. Patient has extensive diverticulosis involving the entire colon. At the anus retroflexion revealed some scarring in the distal rectum of an unknown etiology. 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 The internal opening was not visualized. The patient was taken to the recovery room in stable condition per anesthesia guidelines. RECOMMENDATIONS: Resume diet. Patient should have repeat colonoscopy in the short-term. Await biopsy results. We'll discuss anal fistula diagnosis once again. Patient previously was not interested in having this evaluated further.
[2020-04-25 12:19] VITALS: RESP 16
[2020-04-25 12:31] VITALS: BP 124/74; PULSE 83
== END 2020-04-25 13:00 | disposition home or self-care (01) ==
LOC: ORWHC2ENDO 10:57
PROVIDERS: ATTEND Surgery
DX: K57.31 Diverticulosis of large intestine without perforation or abscess with bleeding (principal); K60.3 Anal fistula; K63.5 Polyp of colon; Q43.8 Other specified congenital malformations of intestine; K62.89 Other specified diseases of anus and rectum; K59.00 Constipation, unspecified; K21.9 Gastro-esophageal reflux disease without esophagitis; I10 Essential (primary) hypertension; N40.0 Benign prostatic hyperplasia without lower urinary tract symptoms; G47.33 Obstructive sleep apnea (adult) (pediatric); D18.03 Hemangioma of intra-abdominal structures; G43.909 Migraine, unspecified, not intractable, without status migrainosus; G89.29 Other chronic pain; M54.5 Low back pain; I83.90 Asymptomatic varicose veins of unspecified lower extremity; I38 Endocarditis, valve unspecified; K08.89 Other specified disorders of teeth and supporting structures; Z86.010 Personal history of colon polyps; Z98.890 Other specified postprocedural states; Z99.89 Dependence on other enabling machines and devices; Z87.19 Personal history of other diseases of the digestive system; Z87.891 Personal history of nicotine dependence; Z79.899 Other long term (current) drug therapy; Z88.0 Allergy status to penicillin; Z80.9 Family history of malignant neoplasm, unspecified; Z80.8 Family history of malignant neoplasm of other organs or systems
CPT/HCPCS: 88305; 45380; J2704

== ENCOUNTER 2020-07-18 07:54 | Day surgery (SDC) | payer MEDICARE, OTHER ==
[2020-07-14 17:35] VITALS: BMI 35.2
[2020-07-18 08:17] VITALS: TEMP 97.8
[2020-07-18] MEDS ORDERED: LACTATED RINGERS 1,000 ML IV ONE (08:17)
[2020-07-18] MEDS ORDERED: LIDOCAINE 1% INJ 10MG/ML (20 ML MDV) ONE (08:44)
[2020-07-18] MEDS ORDERED: PROPOFOL 10 MG/ML 20 ML VIAL IV ONE (08:44)
--- NOTE | 2020-07-18 09:17 | P.GSHP ---
History of Present Illness H&P Date: 07/18/20 Chief Complaint: Colon cancer screening 64-year-old male known to our service. He underwent attempted colonoscopy in April of this year. Patient had diverticulosis and a poor prep at that time. Small hyperplastic polyp seen in the transverse colon. We discussed options of short-term follow-up colonoscopy given the poor prep. Patient also with history of chronic perianal fistula. Says he has intermittent episodes of rectal bleeding from that. He is not interested in repair. 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 History of Any Multi-Drug Resistant Organisms: None Reported Additional Past Surgical History / Comment(s): hiatal hernia repair, 2013 EGD with bx, colonoscopies/benign polypectomies Past Anesthesia/Blood Transfusion Reactions: No Reported Reaction Smoking Status: Former smoker - Past Family History Father Family Medical History: Cancer Additional Family Medical History / Comment(s): ?bladder cancer Mother Family Medical History: No Reported History, Cancer Additional Family Medical History / Comment(s): skin cancer Brother(s) Family Medical History: Cancer Additional Family Medical History / Comment(s): skin cancer Medications and Allergies Home Medications Medication Instructions Recorded Confirmed Type Cholecalciferol (Vitamin D3) 2,000 unit PO DAILY 04/24/17 07/14/20 History [Vitamin D3] Albuterol Sulfate [Ventolin HFA] 1 - 2 puff INHALATION Q6H PRN 04/24/20 07/14/20 History Losartan Potassium 100 mg PO DAILY 04/24/20 07/14/20 History SUMAtriptan SUCCINATE [Imitrex] 50 mg PO DIRECTED PRN 07/14/20 07/14/20 History Allergies Allergy/AdvReac Type Severity Reaction Status Date / Time amoxicillin AdvReac Diarrhea Verified 07/14/20 17:29 Surgical - Exam Vital Signs Temp Pulse Resp BP Pulse Ox 97.8 F 77 18 128/88 98 07/18/20 08:16 07/18/20 08:16 07/18/20 08:16 07/18/20 08:16 07/18/20 08:16 Physical exam: General: Well-developed, well-nourished HEENT: Normocephalic, sclerae nonicteric Abdomen: Nontender, nondistended Extremities: No edema Neuro: Alert and oriented Assessment and Plan (1) Colon cancer screening Narrative/Plan: Will proceed with colonoscopy Current Visit: Yes Status: Acute Code(s): Z12.11 - ENCOUNTER FOR SCREENING FOR MALIGNANT NEOPLASM OF COLON SNOMED Code(s): 221095814
[2020-07-18 09:22] VITALS: RESP 16
--- NOTE | 2020-07-18 09:24 | P.PCN ---
Date of Procedure: 07/18/20 Procedure(s) Performed: PREOPERATIVE DIAGNOSIS: Screening POSTOPERATIVE DIAGNOSIS: Extensive diverticulosis, small sigmoid polyp, slightly suboptimal prep PROCEDURE: Colonoscopy with biopsy ANESTHESIA: MAC SURGEON: Charles Arita M.D. SPECIMENS: Sigmoid polyp ENDOSCOPIC PROCEDURE: The patient was placed on the endoscopy table in the left decubitus position. The Olympus colonoscope was inserted into the anus and passed under direct visualization to the mid ascending colon. We could visualize the cecum from a distance. I could not see the base of the cecum well. We tried multiple attempts at advancing the scope into the base of cecum but were unsuccessful. From that point the scope was slowly withdrawn inspecting all surfaces carefully. There were no neoplastic inflammatory or polypoid lesions throughout the cecum, ascending, transverse, and descending colon. In the sigmoid a small polyp was seen and removed using the cold biopsy forceps. The remainder of the sigmoid and rectum appeared normal. The patient's prep was slightly suboptimal but much improved from last time. She had extensive diverticulosis throughout the colon. At the anus the patient is known to have a posterior anal fistula 1.5-2 cm superior to the anal verge in the midline. There was mild induration. No significant drainage. The patient was taken to the recovery room in stable condition per anesthesia guidelines. RECOMMENDATIONS: Resume diet. Await biopsy results.
[2020-07-18 09:50] VITALS: BP 111/68; PULSE 83
== END 2020-07-18 10:07 | disposition home or self-care (01) ==
LOC: ORWHC2ENDO 07:54
PROVIDERS: ATTEND Surgery
DX: Z12.11 Encounter for screening for malignant neoplasm of colon (principal); K63.5 Polyp of colon; K57.30 Diverticulosis of large intestine without perforation or abscess without bleeding; K60.3 Anal fistula; Z86.010 Personal history of colon polyps; N40.0 Benign prostatic hyperplasia without lower urinary tract symptoms; K21.9 Gastro-esophageal reflux disease without esophagitis; I10 Essential (primary) hypertension; Z87.891 Personal history of nicotine dependence; G47.33 Obstructive sleep apnea (adult) (pediatric); Z87.19 Personal history of other diseases of the digestive system; G43.909 Migraine, unspecified, not intractable, without status migrainosus; G89.29 Other chronic pain; M54.5 Low back pain; I83.90 Asymptomatic varicose veins of unspecified lower extremity; I38 Endocarditis, valve unspecified; R06.02 Shortness of breath; Z98.890 Other specified postprocedural states; Z80.8 Family history of malignant neoplasm of other organs or systems; Z79.899 Other long term (current) drug therapy; Z88.0 Allergy status to penicillin
CPT/HCPCS: 88305; 45380; J2001; J2704

== ENCOUNTER → 2021-02-23 | Outpatient (CLI) | payer MEDICARE, OTHER ==
--- NOTE | 2021-02-23 11:09 | P.STRESS ---
- Stress Test Note Stress Test Results/Findings: Exam Performed: stress echo exercise Exam Date: 02/23/21 Reason for Exam: Chest pain Height: 5 ft 10 in Weight: 245 kg Protocol: Avinash Stage: II Duration of Exercise: 5:20 min Resting Heart Rate: 86 Resting Blood Pressure: 138/81 Maximum Achieved Heart Rate: 135 Maximum Achieved Blood Pressure: 120/71 85% PMHR: 130 100% PMHR: 153 METS: 6.5 Technologist Comment: Stress Test Results/Findings: His is a 65-year-old gentleman with history of hypertension and hypercholesteremia being evaluated for symptoms of shortness of breath. Stress data: Baseline EKG showed sinus rhythm. Blood pressure at rest is 138/81 with a pulse rate of 86. Patient walked on the Avinash protocol for about 5 min utes and 20 seconds achieving a maximal heart rate of 135 with a blood pressure 120/71. EKGs taken during and after exercise did not reveal any significant changes from the baseline. The test was stopped because of shortness of breath. No complaints of chest pain. Echo data: Baseline echo images show normal wall motion and thickening. Exercise echo images showed augmentation of wall motion and thickening in all segments. Final impression: #1. Negative stress test #2. Negative stress echo. #3. Patient's exercise capacity is below average
--- NOTE | 2021-02-23 11:38 | EST ---
Stress Test Results/Findings: Exam Performed: stress echo exercise Exam Date: 02/23/21 Reason for Exam: Chest pain Height: 5 ft 10 in Weight: 245 kg Protocol: Avinash Stage: II Duration of Exercise: 5:20 min Resting Heart Rate: 86 Resting Blood Pressure: 138/81 Maximum Achieved Heart Rate: 135 Maximum Achieved Blood Pressure: 120/71 85% PMHR: 130 100% PMHR: 153 METS: 6.5 Technologist Comment: Stress Test Results/Findings: His is a 65-year-old gentleman with history of hypertension and hypercholesteremia being evaluated for symptoms of shortness of breath. Stress data: Baseline EKG showed sinus rhythm. Blood pressure at rest is 138/81 with a pulse rate of 86. Patient walked on the Avinash protocol for about 5 minutes and 20 seconds achieving a maximal heart rate of 135 with a blood pressure 120/71. EKGs taken during and after exercise did not reveal any significant changes from the baseline. The test was stopped because of shortness of breath. No complaints of chest pain. Echo data: Baseline echo images show normal wall motion and thickening. Exercise echo images showed augmentation of wall motion and thickening in all segments. Final impression: #1. Negative stress test #2. Negative stress echo. #3. Patient's exercise capacity is below average MTDD
== END | disposition home or self-care (01) ==
LOC: RADNMMAIN 09:44
PROVIDERS: ATTEND Family Medicine
DX: R07.9 Chest pain, unspecified (principal)
CPT/HCPCS: 93351

== ENCOUNTER → 2021-07-05 | Outpatient (CLI) | payer MEDICARE, OTHER ==
--- NOTE | 2021-07-05 17:38 | CT ---
EXAMINATION TYPE: CT brain wo con DATE OF EXAM: 07/05/2021 COMPARISON: CT dated 01/21/2018 HISTORY: Left-sided facial droop and chronic headaches CT DLP: 1086 mGycm Automated exposure control for dose reduction was used. TECHNIQUE: CT scan of the brain is performed without IV contrast administration. FINDINGS: No acute intracranial hemorrhage. No gross acute cortical infarct. No midline shift, herniation or ve ntriculomegaly. Unremarkable moreau-white matter differentiation, basal cisterns, sella and CP angles. No gross space-o ccupying lesion, vasogenic edema or mass effect. Unremarkable orbits. Clear visualized paranasal sinuses and mastoid air cells. Unremarkable calvarial bones. IMPRESSION: No acute intracranial abnormality or gross space-occupying lesion by this nonenhanced CT scan.
== END | disposition home or self-care (01) ==
LOC: RADCTMAIN 12:00
PROVIDERS: ATTEND Family Medicine
DX: R51.9 Headache, unspecified (principal); R29.810 Facial weakness
CPT/HCPCS: 70450

== ENCOUNTER 2021-07-07 01:11 | Emergency (ER) | payer MEDICARE, OTHER ==
--- NOTE | 2021-07-07 01:35 | CT ---
EXAMINATION TYPE: CT brain wo con for TPA DATE OF EXAM: 07/07/2021 COMPARISON: 07/05/2021 HISTORY: AMS code stroke CT DLP: 2196.6 mGycm Automated exposure control for dose reduction was used. Images of the brain obtained with no contrast. Ventricles have normal size. There is no mass effect or midline shift. No sign of intracranial hemorr tania. The calvarium is intact. No evidence of cerebral edema. There is normal aeration of the mastoid sinuses. IMPRESSION: Negative unenhanced head CT scan. No change.
--- NOTE | 2021-07-07 01:39 | ED ---
Neuro HPI - General Chief Complaint: Altered Mental Status Stated Complaint: Possible Stroke Time Seen by Provider: 07/07/21 01:13 Source: EMS Mode of arrival: EMS Limitations: altered mental status - History of Present Illness Is the patient presenting with stroke symptoms?: Yes Last Known Well Date: 07/06/21 Last Known Well Time: 23:00 -: minutes(s) Initial Comments: This patient is a 65-year-old man who presents to be evaluated for suspected stroke. The patient had gone to bed looking like his usual self around 11 PM. The patient's states that she was awakened by him "thrashing," at 12:30. She states that by this she means she looked like he was attempting to get up from bed but was not able to move properly. She states she was also attempting to speak but his speech was extremely distorted. On arrival here, the patient is not able to give any additional history. He is triaged directly to computed tomography scan Location: speech, right face, right arm, right leg History of same: No Place: home Severity: severe Quality: weak Improves With: none Worsens With: none On Anticoagulants: No Context: sudden onset Associated Symptoms: denies other symptoms Treatments Prior to Arrival: none - Related Data Home Medications: Home Medications Medication Instructions Recorded Confirmed Cholecalciferol (Vitamin D3) 2,000 unit PO DAILY 04/24/17 07/14/20 [Vitamin D3] Albuterol Sulfate [Ventolin HFA] 1 - 2 puff INHALATION Q6H PRN 04/24/20 07/14/20 Losartan Potassium 100 mg PO DAILY 04/24/20 07/14/20 SUMAtriptan SUCCINATE [Imitrex] 50 mg PO DIRECTED PRN 07/14/20 07/14/20 Allergies/Adverse Reactions: Allergies Allergy/AdvReac Type Severity Reaction Status Date / Time amoxicillin AdvReac Diarrhea Verified 07/14/20 17:29 Review of Systems ROS Statement: Those systems with pertinent positive or pertinent negative responses have been documented in the HPI. ROS Other: All systems not noted in ROS Statement are negative. Limitations: ROS unobtainable due to patients medical condition General Exam Limitations: altered mental status General appearance: alert, in distress Head exam: Present: atraumatic, normocephalic Eye exam: Present: normal appearance, PERRL, EOMI. Absent: scleral icterus, conjunctival injection ENT exam: Present: normal oropharynx Neck exam: Present: normal inspection Respiratory exam: Present: normal lung sounds bilaterally. Absent: respiratory distress, wheezes, rales, rhonchi, stridor Cardiovascular Exam: Present: regular rate, normal rhythm, normal heart sounds. Absent: systolic murmur, diastolic murmur, rubs, gallop GI/Abdominal exam: Present: soft. Absent: distended, tenderness, guarding, rebound, rigid, mass Extremities exam: Present: normal inspection, normal capillary refill. Absent: pedal edema, calf tenderness Back exam: Present: normal inspection Neurological exam: Present: alert, motor sensory deficit. Absent: CN II-XII intact Expanded Neurological exam: Present: protecting the airway. Absent: inattentive, receptive aphasia Cranial nerves: EOM's Intact: Normal, Gag Reflex: Normal Motor strength exam: RUE: 0, LUE: 5, RLE: 2/1, LLE: 5 Eye Response: (4) open spontaneously Motor Response: (6) obeys commands Verbal Response: incomprehensible sounds [place] Total: 11 Skin exam: Present: warm, dry, intact, normal color. Absent: rash Stroke MDM - Lab Data Result diagrams: 07/07/21 01:45 07/07/21 01:45 Lab Results 07/07/21 07/07/21 07/07/21 Range/Units 01:45 01:45 01:45 WBC 8.4 (3.8-10.6) k/uL RBC 4.50 (4.30-5.90) m/uL Hgb 13.7 (13.0-17.5) gm/dL Hct 43.2 (39.0-53.0) % MCV 96.1 (80.0-100.0) fL MCH 30.4 (25.0-35.0) pg MCHC 31.7 (31.0-37.0) g/dL RDW 12.5 (11.5-15.5) % Plt Count 245 (150-450) k/uL MPV 7.8 Neutrophils % 55 % Lymphocytes % 34 % Monocytes % 6 % Eosinophils % 1 % Basophils % 1 % Neutrophils # 4.6 (1.3-7.7) k/uL Lymphocytes # 2.9 (1.0-4.8) k/uL Monocytes # 0.5 (0-1.0) k/uL Eosinophils # 0.1 (0-0.7) k/uL Basophils # 0.1 (0-0.2) k/uL PT 9.9 (9.0-12.0) sec INR 0.9 (<1.2) APTT 23.5 (22.0-30.0) sec Sodium 137 (137-145) mmol/L Potassium 3.9 (3.5-5.1) mmol/L Chloride 106 (98-107) mmol/L Carbon Dioxide 24 (22-30) mmol/L Anion Gap 7 mmol/L BUN 17 (9-20) mg/dL Creatinine 1.03 (0.66-1.25) mg/dL Est GFR (CKD-EPI)AfAm 87 (>60 ml/min/1.73 sqM) Est GFR (CKD-EPI)NonAf 75 (>60 ml/min/1.73 sqM) Glucose 117 H (74-99) mg/dL Calcium 8.4 (8.4-10.2) mg/dL Total Bilirubin 0.3 (0.2-1.3) mg/dL AST 20 (17-59) U/L ALT 23 (4-49) U/L Alkaline Phosphatase 101 (38-126) U/L Troponin I (0.000-0.034) ng/mL Total Protein 6.5 (6.3-8.2) g/dL Albumin 3.7 (3.5-5.0) g/dL Serum Alcohol <10 mg/dL 07/07/21 Range/Units 01:45 WBC (3.8-10.6) k/uL RBC (4.30-5.90) m/uL Hgb (13.0-17.5) gm/dL Hct (39.0-53.0) % MCV (80.0-100.0) fL MCH (25.0-35.0) pg MCHC (31.0-37.0) g/dL RDW (11.5-15.5) % Plt Count (150-450) k/uL MPV Neutrophils % % Lymphocytes % % Monocytes % % Eosinophils % % Basophils % % Neutrophils # (1.3-7.7) k/uL Lymphocytes # (1.0-4.8) k/uL Monocytes # (0-1.0) k/uL Eosinophils # (0-0.7) k/uL Basophils # (0-0.2) k/uL PT (9.0-12.0) sec INR (<1.2) APTT (22.0-30.0) sec Sodium (137-145) mmol/L Potassium (3.5-5.1) mmol/L Chloride (98-107) mmol/L Carbon Dioxide (22-30) mmol/L Anion Gap mmol/L BUN (9-20) mg/dL Creatinine (0.66-1.25) mg/dL Est GFR (CKD-EPI)AfAm (>60 ml/min/1.73 sqM) Est GFR (CKD-EPI)NonAf (>60 ml/min/1.73 sqM) Glucose (74-99) mg/dL Calcium (8.4-10.2) mg/dL Total Bilirubin (0.2-1.3) mg/dL AST (17-59) U/L ALT (4-49) U/L Alkaline Phosphatase (38-126) U/L Troponin I <0.012 (0.000-0.034) ng/mL Total Protein (6.3-8.2) g/dL Albumin (3.5-5.0) g/dL Serum Alcohol mg/dL - EKG Data -: EKG Interpreted by Me EKG shows normal: sinus rhythm (Rate 67 bpm), axis (Normal), intervals (Normal), QRS complexes (Normal), ST-T waves (Normal) Rate: normal Past Medical History Past Medical History: GERD/Reflux, Hypertension, Prostate Disorder, Sleep Apnea/CPAP/BIPAP Additional Past Medical History / Comment(s): Past bowel obstructions, 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 History of Any Multi-Drug Resistant Organisms: None Reported Additional Past Surgical History / Comment(s): hiatal hernia repair, 2013 EGD with bx, colonoscopies/benign polypectomies Past Anesthesia/Blood Transfusion Reactions: No Reported Reaction Smoking Status: Former smoker - Past Family History Father Family Medical History: Cancer Additional Family Medical History / Comment(s): ?bladder cancer Mother Family Medical History: No Reported History, Cancer Additional Family Medical History / Comment(s): skin cancer Brother(s) Family Medical History: Cancer Additional Family Medical History / Comment(s): skin cancer Course Vital Signs 07/07/21 07/07/21 07/07/21 01:23 01:55 01:58 Pulse Rate 68 64 66 Respiratory 20 16 14 Rate Blood Pressure 135/79 108/86 133/87 O2 Sat by Pulse 94 L 97 99 Oximetry 07/07/21 02:13 Pulse Rate 70 Respiratory 21 Rate Blood Pressure O2 Sat by Pulse 100 Oximetry - Reevaluation(s) Reevaluation #1: 07/07/21 01:[address] Bond who is on for the stroke team tonight. He has evaluated the computed tomography scan and recommending TPA administration. I discussed the recommendation with the patient and his and they are agreeable with TPA administration. Also discussed transfer to [facility] for further evaluation and treatment. Clear and agreement. Critical Care Time Critical Care Time: Yes (35 minutes) Disposition Clinical Impression: Acute ischemic stroke Disposition: ADMITTED IP TO THIS [facility] Condition: Critical Is patient prescribed a controlled substance at d/c from ED?: No Referrals: Jefferson Horowitz MD [Primary Care Provider] - 1-2 days
[2021-07-07] MEDS ORDERED: Alteplase PER PHARMACY Stroke 1 EACH MISC MISCELLANE PRN ×2 (01:42→01:46)
--- NOTE | 2021-07-07 01:43 | CT ---
EXAMINATION TYPE: CT angio head neck DATE OF EXAM: 07/07/2021 COMPARISON: HISTORY: AMS code stroke CT DLP: 2196.6 mGycm Automated exposure control for dose reduction was used. CONTRAST: Performed with IV Contrast, patient injected with 65 mL of Isovue 370. There are 3-D postprocess images. Images obtained from the aortic arch to the vertex of the brain wit h IV contrast. There is normal branching pattern of the great vessels and aortic arch. There is bilateral arterial f low in the subclavian arteries. There is arterial flow in the vertebral arteries bilaterally. There i s arterial flow in the common internal and external carotid arteries bilaterally. There is bilateral wide patency of the carotid artery bifurcations. No evidence of carotid or vertebral artery aneurysm or dissection. The left vertebral artery is larger than the right. There is complete occlusion of the left internal carotid artery 2 cm from the origin. The intracerebral arterial circulation shows no flow in the intracranial left internal carotid artery . There is arterial flow in the anterior cerebral arteries bilaterally apparently filling through the anterior communicating artery. There is very little contrast in the left middle cerebral artery and there appears to be thrombosis of the M1 segment of the left middle cerebral artery. There is arteria l flow in the distal branches of the left middle cerebral artery in the sylvian fissure. There is art erial flow in the right middle cerebral artery and the posterior cerebral arteries bilaterally. There is arterial flow within the vertebral basilar artery system. There is normal enhancement of the intracranial venous sinuses. 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 There is essentially complete thromb osis of the M1 segment of the left middle cerebral artery. There is distal branches of the left middl e cerebral artery with contrast filling. This could be collateral flow.
[2021-07-07] MEDS ORDERED: ALTEPLASE BOLUS 1 MG/1 ML SYRINGE IV STA ×2 (01:48→01:53)
[2021-07-07] MEDS ORDERED: ALTEPLASE 81 MG in EMPTY BAG 1 BAG IV STA (01:49)
--- NOTE | 2021-07-07 01:53 | XR ---
EXAMINATION TYPE: XR chest 1V DATE OF EXAM: 07/07/2021 COMPARISON: NONE HISTORY: Weakness TECHNIQUE: Single view FINDINGS: There is no heart failure nor confluent pneumonic infiltrate. Costophrenic angles are clear . There are no hilar masses. There are chest leads. IMPRESSION: No active cardiopulmonary disease.
[2021-07-07 02:13] LABS: Basophils # (A) 0.1 k/uL (0-0.2); Basophils % (A) 1 %; Eosinophils # (A) 0.1 k/uL (0-0.7); Eosinophils % (A) 1 %; HCT 43.2 % (39.0-53.0); HGB 13.7 gm/dL (13.0-17.5); Lymphocytes # (A) 2.9 k/uL (1.0-4.8); Lymphocytes % (A) 34 %; MCH 30.4 pg (25.0-35.0); MCHC 31.7 g/dL (31.0-37.0); MCV 96.1 fL (80.0-100.0); Mean Platelet Volume 7.8; Monocytes # (A) 0.5 k/uL (0-1.0); Monocytes % (A) 6 %; Neutrophils # (A) 4.6 k/uL (1.3-7.7); Neutrophils % (A) 55 %; Platelet Count 245 k/uL (150-450); RDW 12.5 % (11.5-15.5); WBC 8.4 k/uL (3.8-10.6)
[2021-07-07 02:18] LABS: INR 0.9 (<1.2); Partial Thromboplastin Time 23.5 sec (22.0-30.0); Prothrombin Time 9.9 sec (9.0-12.0)
[2021-07-07 02:23] VITALS: BP 133/87
[2021-07-07 02:24] LABS: ALT 23 U/L (4-49); AST 20 U/L (17-59); African American GFR (CKD) 87 (>60 ml/min/1.73 sqM); Albumin 3.7 g/dL (3.5-5.0); Alcohol <10 mg/dL; Alkaline Phosphatase 101 U/L (38-126); Anion Gap 7 mmol/L; Blood Urea Nitrogen 17 mg/dL (9-20); Calcium 8.4 mg/dL (8.4-10.2); Carbon Dioxide 24 mmol/L (22-30); Chloride 106 mmol/L (98-107); Glucose 117 mg/dL (74-99); Non-African American GFR(CKD) 75 (>60 ml/min/1.73 sqM); Potassium 3.9 mmol/L (3.5-5.1); Sodium 137 mmol/L (137-145); Total Bilirubin 0.3 mg/dL (0.2-1.3); Total Protein 6.5 g/dL (6.3-8.2)
[2021-07-07 02:27] VITALS: PULSE 70; RESP 21
[2021-07-07] MEDS ORDERED: SODIUM CHLORIDE 0.9% 50 ML MINI-BAG IV ONE ×3 (02:47→02:50)
== END 2021-07-07 02:15 | disposition other institution (70) ==
LOC: EC 01:11
DX: I63.9 Cerebral infarction, unspecified (principal); I10 Essential (primary) hypertension; Z87.891 Personal history of nicotine dependence; Z88.0 Allergy status to penicillin
CPT/HCPCS: 36415; 93005; 80053; 84484; 85025; 85610; 85730; 71045; 70496; 70450; 70498; 99291; 37195; G0480; J2997; Q9967; 80320

== ENCOUNTER 2022-01-19 09:13 | Observation (INO) | payer MEDICARE, OTHER ==
--- NOTE | 2022-01-19 09:55 | CT ---
EXAMINATION TYPE: CT brain wo con DATE OF EXAM: 01/19/2022 COMPARISON: 07/07/2021 HISTORY: Dizziness. CT DLP: 1306.[address] of the brain was performed. The ventricles, basal cisterns and sulci overlying the cerebral convexities demonstrate mild enlargem ent. Remote insult left MCA territory moderate in size. There is no evidence for intracranial hemorrhage or sulcal effacement. There is decreased attenuation about the periventricular white matter and deep white matter of both c erebral hemispheres, compatible with chronic small vessel ischemia. Differential diagnosis does inclu de demyelination. No mass effects are seen.No midline shift. Osseous calvarium is intact. If symptoms persist consider MRI. IMPRESSION: 1. Age related atrophic and chronic small vessel ischemic change without acute intracranial process s een at this time.
--- NOTE | 2022-01-19 11:34 | ED ---
Dizziness HPI - General Chief Complaint: Dizziness Stated Complaint: Dizziness Time Seen by Provider: 01/19/22 11:09 Source: patient Mode of arrival: ambulatory Limitations: no limitations - History of Present Illness Initial Comments: Patient is a pleasant 66-year-old male presenting to the emergency room with his spouse with concerns of dizziness ongoing for approximately 4-5 days. The dizziness is worse with position changes. He does typically utilize hearing aids but does not have them with him currently. 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 He and his both deny any new deficits. He denies any chest pain, shortness of breath, abdominal pain, nausea, vomiting, dizziness, ear pain, fevers or chills. In addition to his stroke history he has a past medical history significant for GERD, hypertension, BPH, sleep apnea, chronic back pain, diverticulosis, migraines and bowel obstructions. - Related Data Home Medications Medication Instructions Recorded Confirmed Cholecalciferol (Vitamin D3) 2,000 unit PO DAILY 04/24/17 07/14/20 [Vitamin D3] Albuterol Sulfate [Ventolin HFA] 1 - 2 puff INHALATION Q6H PRN 04/24/20 07/14/20 Losartan Potassium 100 mg PO DAILY 04/24/20 07/14/20 SUMAtriptan succinate [Imitrex] 50 mg PO DIRECTED PRN 07/14/20 07/14/20 Allergies Allergy/AdvReac Type Severity Reaction Status Date / Time amoxicillin AdvReac Diarrhea Verified 01/19/22 09:21 Review of Systems ROS Statement: Those systems with pertinent positive or pertinent negative responses have been documented in the HPI. ROS Other: All systems not noted in ROS Statement are negative. 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 History of Any Multi-Drug Resistant Organisms: None Reported Additional Past Surgical History / Comment(s): hiatal hernia repair, 2013 EGD with bx, colonoscopies/benign polypectomies Past Anesthesia/Blood Transfusion Reactions: No Reported Reaction Past Psychological History: No Psychological Hx Reported Smoking Status: Former smoker Past Alcohol Use History: None Reported Past Drug Use History: None Reported - Past Family History Father Family Medical History: Cancer Additional Family Medical History / Comment(s): ?bladder cancer Mother Family Medical History: No Reported History, Cancer Additional Family Medical History / Comment(s): skin cancer Brother(s) Family Medical History: Cancer Additional Family Medical History / Comment(s): skin cancer General Exam Limitations: no limitations General appearance: alert, in no apparent distress Head exam: Present: atraumatic, normocephalic, normal inspection Eye exam: Present: normal appearance, PERRL, EOMI, scleral icterus, conjunctival injection, periorbital swelling, periorbital tenderness. Absent: nystagmus ENT exam: Present: mucous membranes moist Expanded TM/Canal exam: Erythema: Right TM, Effusion: Right TM (serous), Cerumen Impaction: Right TM (removed without complication) Mouth exam: Absent: drooling Teeth exam: Present: normal inspection Throat exam: normal inspection Neck exam: Present: normal inspection, full ROM. Absent: tenderness Respiratory exam: Present: normal lung sounds bilaterally. Absent: respiratory distress, wheezes, rales, rhonchi, stridor Cardiovascular Exam: Present: regular rate, normal rhythm, normal heart sounds. Absent: systolic murmur, diastolic murmur, rubs, gallop, clicks GI/Abdominal exam: Present: soft, normal bowel sounds. Absent: distended, tenderness, guarding, rebound, rigid Rectal exam: Present: deferred Extremities exam: Present: normal inspection. Absent: pedal edema, joint swelling Back exam: Present: normal inspection, full ROM Neurological exam: Present: alert, oriented X3, other (Right-sided facial droop, mild chronic) Expanded Speech: Present: total aphasia Cranial nerves: Nystagmus: Normal Motor strength exam: RUE: 5, LUE: 5, RLE: 5, LLE: 5 Psychiatric exam: Present: normal affect, normal mood Skin exam: Present: warm, dry, intact, normal color. Absent: rash Course Vital Signs 01/19/22 09:17 Temperature 98 F Pulse Rate 68 Respiratory 18 Rate Blood Pressure 117/78 O2 Sat by Pulse 100 Oximetry Medical Decision Making - Medical Decision Making 58-year-old male presenting to the emergency room with complaints of dizziness ongoing for 4-5 days worse with positional changes without any a ssociated symptoms. CT of the brain ordered while patient was in triage by attending provider. CT image reviewed by myself showing no acute intracranial process; remote stroke noted. Radiologist report reviewed. EKG completed by triage as well demonstrating normal sinus rhythm. Will add CBC, CMP, troponin, and CTA of head and neck given past medical history. Laboratory studies unremarkable including negative troponin and normal CBC. CTA image interpreted by me along with radiologist impression demonstrating left internal carotid occlusive disease. Previous CTA/carotid Dopplers not available at this facility. Findings discussed with Dr. Dueñas by attending. CTA and CT brain images uploaded to PACS for neuro interventionalists to review. Spoke with neural interventionalists regarding findings symptomatology and presentation along with previous history. Orders received for outpatient follow-up after 24- hour observation with IV fluid bolus at this time along with aspirin, Plavix and lower. Medications from home reviewed with spouse reporting normally taking a baby aspirin and half the Meherrin to tablet of 45 mg once a days despite Meherrin to being discontinued and recent reduce dose of atorvastatin to 10 mg. Will stop Meherrin to completely intensify aspirin therapy and Lipitor therapy. Dr. Horowitz on-call for Dr. Gray service called and discussed findings and recommendations by neuro interventionalists. He is accepting of admission. Will place admission orders. As indicated above case discussed with Dr. Dueñas. - Lab Data Result diagrams: 01/19/22 11:46 01/19/22 11:46 Lab Results 01/19/22 01/19/22 01/19/22 Range/Units 11:46 11:46 11:46 WBC 5.7 (3.8-10.6) k/uL RBC 4.40 (4.30-5.90) m/uL Hgb 14.2 (13.0-17.5) gm/dL Hct 41.1 (39.0-53.0) % MCV 93.6 (80.0-100.0) fL MCH 32.2 (25.0-35.0) pg MCHC 34.5 (31.0-37.0) g/dL RDW 12.7 (11.5-15.5) % Plt Count 180 (150-450) k/uL MPV 7.3 Neutrophils % 69 % Lymphocytes % 24 % Monocytes % 5 % Eosinophils % 1 % Basophils % 1 % Neutrophils # 3.9 (1.3-7.7) k/uL Lymphocytes # 1.4 (1.0-4.8) k/uL Monocytes # 0.3 (0-1.0) k/uL Eosinophils # 0.0 (0-0.7) k/uL Basophils # 0.1 (0-0.2) k/uL PT 10.3 (9.0-12.0) sec INR 1.0 (<1.2) Sodium 140 (137-145) mmol/L Potassium 4.3 (3.5-5.1) mmol/L Chloride 109 H (98-107) mmol/L Carbon Dioxide 25 (22-30) mmol/L Anion Gap 6 mmol/L BUN 17 (9-20) mg/dL Creatinine 0.82 (0.66-1.25) mg/dL Est GFR (CKD-EPI)AfAm >90 (>60 ml/min/1.73 sqM) Est GFR (CKD-EPI)NonAf >90 (>60 ml/min/1.73 sqM) Glucose 98 (74-99) mg/dL Calcium 8.9 (8.4-10.2) mg/dL Magnesium 2.1 (1.6-2.3) mg/dL Total Bilirubin 0.5 (0.2-1.3) mg/dL AST 20 (17-59) U/L ALT 23 (4-49) U/L Alkaline Phosphatase 110 (38-126) U/L Troponin I (0.000-0.034) ng/mL Total Protein 6.5 (6.3-8.2) g/dL Albumin 3.8 (3.5-5.0) g/dL 01/19/22 Range/Units 11:46 WBC (3.8-10.6) k/uL RBC (4.30-5.90) m/uL Hgb (13.0-17.5) gm/dL Hct (39.0-53.0) % MCV (80.0-100.0) fL MCH (25.0-35.0) pg MCHC (31.0-37.0) g/dL RDW (11.5-15.5) % Plt Count (150-450) k/uL MPV Neutrophils % % Lymphocytes % % Monocytes % % Eosinophils % % Basophils % % Neutrophils # (1.3-7.7) k/uL Lymphocytes # (1.0-4.8) k/uL Monocytes # (0-1.0) k/uL Eosinophils # (0-0.7) k/uL Basophils # (0-0.2) k/uL PT (9.0-12.0) sec INR (<1.2) Sodium (137-145) mmol/L Potassium (3.5-5.1) mmol/L Chloride (98-107) mmol/L Carbon Dioxide (22-30) mmol/L Anion Gap mmol/L BUN (9-20) mg/dL Creatinine (0.66-1.25) mg/dL Est GFR (CKD-EPI)AfAm (>60 ml/min/1.73 sqM) Est GFR (CKD-EPI)NonAf (>60 ml/min/1.73 sqM) Glucose (74-99) mg/dL Calcium (8.4-10.2) mg/dL Magnesium (1.6-2.3) mg/dL Total Bilirubin (0.2-1.3) mg/dL AST (17-59) U/L ALT (4-49) U/L Alkaline Phosphatase (38-126) U/L Troponin I <0.012 (0.000-0.034) ng/mL Total Protein (6.3-8.2) g/dL Albumin (3.5-5.0) g/dL - EKG Data EKG Comments: EKG completed at 0959 interpreted by me demonstrates sinus rhythm, ventricular rate 75 bpm, TX interval 124 ms, QRS duration 96 ms, QT/QTC 387/460 ms, PRT axes 50, 24, 35 - Radiology Data Radiology results: report reviewed, image reviewed CT of the brain without contrast impression by radiologist remote insult left MCA territory moderate in size, age-related atrophic changes and chronic small vessel ischemia change without acute intracranial process. CT and your head and neck compression by radiologist occlusion of left ICA just distal to its origin left ECA is patent mild plaque right common carotid artery. Mild plaque is also noted carotid brought bald and proximal ICA of right no significant diameter reduction right ECA is patent. Asymmetrical enhancement of left middle cerebral artery relative to its right-sided counterpart. Disposition Clinical Impression: Dizziness, ICAO (internal carotid artery occlusion) Disposition: ADMITTED IP TO THIS HOSP Condition: Stable Is patient prescribed a controlled substance at d/c from ED?: No Referrals: Garret Gray Jr, [Primary Care Provider] - 1-2 days Time of Disposition: 14:22
[2022-01-19 12:00] LABS: Basophils # (A) 0.1 k/uL (0-0.2); Basophils % (A) 1 %; Eosinophils % (A) 1 %; HCT 41.1 % (39.0-53.0); HGB 14.2 gm/dL (13.0-17.5); Lymphocytes # (A) 1.4 k/uL (1.0-4.8); Lymphocytes % (A) 24 %; MCH 32.2 pg (25.0-35.0); MCHC 34.5 g/dL (31.0-37.0); MCV 93.6 fL (80.0-100.0); Mean Platelet Volume 7.3; Monocytes # (A) 0.3 k/uL (0-1.0); Monocytes % (A) 5 %; Neutrophils # (A) 3.9 k/uL (1.3-7.7); Neutrophils % (A) 69 %; Platelet Count 180 k/uL (150-450); RDW 12.7 % (11.5-15.5); WBC 5.7 k/uL (3.8-10.6)
[2022-01-19 12:09] LABS: Prothrombin Time 10.3 sec (9.0-12.0)
[2022-01-19 12:11] LABS: African American GFR (CKD) >90 (>60 ml/min/1.73 sqM); Albumin 3.8 g/dL (3.5-5.0); Anion Gap 6 mmol/L; Carbon Dioxide 25 mmol/L (22-30); Chloride 109 mmol/L (98-107); Glucose 98 mg/dL (74-99); Non-African American GFR(CKD) >90 (>60 ml/min/1.73 sqM); Potassium 4.3 mmol/L (3.5-5.1); Sodium 140 mmol/L (137-145); Total Protein 6.5 g/dL (6.3-8.2)
[2022-01-19 12:12] LABS: ALT 23 U/L (4-49); AST 20 U/L (17-59); Alkaline Phosphatase 110 U/L (38-126); Blood Urea Nitrogen 17 mg/dL (9-20); Calcium 8.9 mg/dL (8.4-10.2); Magnesium 2.1 mg/dL (1.6-2.3); Total Bilirubin 0.5 mg/dL (0.2-1.3)
--- NOTE | 2022-01-19 13:28 | CT ---
EXAMINATION TYPE: CT angio head neck DATE OF EXAM: 01/19/2022 COMPARISON: None HISTORY: ams CT DLP: 714 mGycm CONTRAST: Performed with IV Contrast, patient injected with 65 mL of Isovue 370. Combination Contrast CTA cervical carotids and [place] CTA cervical carotids with 3-D recons truction Contrast CTA of the cervical carotids was performed 3-D reconstruction imaging obtained at a separate workstation. Right carotid system: Mild plaque is seen of the right common carotid artery. There is mild plaque a lso noted at the carotid bulb and proximal ICA. No significant diameter reduction. ECA is patent. Right vertebral artery appears unremarkable. Left carotid system: Mild plaque is seen of the left common carotid artery. There is occlusion of the left ICA just distal to its origin. The left ECA is patent. IMPRESSION: 1. Occlusion of the left ICA. CTA [place] with 3-D reconstruction Contrast CTA of the [place] was performed 3-D reconstruction imaging obtained at a separate workstation. The left ICA is occluded. The right ICA is patent. The vertebrobasilar system and their major tributa yaya are patent. Asymmetric opacification left MCA system versus the right. I do not see evidence for sizable aneurysm or vascular malformation. Please note MRI provides greater sensitivity and specifi city. Visualized brain appears grossly unremarkable. IMPRESSION: 1. There is occlusion of the left ICA. Asymmetric enhancement of the left middle cerebral artery rela tive to its right-sided counterpart. NASCET criteria was used in interpretation of this exam?
[2022-01-19] MEDS ORDERED: NALOXONE 0.4 MG/ML 1 ML VIAL IV PRN (14:25)
[2022-01-19] MEDS ORDERED: CLOPIDOGREL 75 MG TAB PO STA (14:27)
[2022-01-19] MEDS ORDERED: ASPIRIN 325 MG TAB PO STA (14:27)
[2022-01-19] MEDS ORDERED: SODIUM CHLORIDE 0.9% 1,000 ML IV STA (14:27)
[2022-01-19] MEDS ORDERED: ATORVASTATIN 80 MG TAB PO STA (14:27)
[2022-01-19] MEDS ORDERED: TAMSULOSIN 0.4 MG CAP.ER.24H PO STA (17:20)
[2022-01-19] MEDS ORDERED: ACETAMINOPHEN TAB 325 MG TAB PO PRN (17:21)
[2022-01-20 08:17] VITALS: BP 136/87; PULSE 66; RESP 18; TEMP 98.2
[2022-01-20] MEDS ORDERED: CLOPIDOGREL 75 MG TAB PO SCH (09:00)
[2022-01-20] MEDS ORDERED: MEMANTINE 5 MG TAB PO SCH (09:00)
[2022-01-20] MEDS ORDERED: ESCITALOPRAM 20 MG TAB PO SCH (09:00)
[2022-01-20] MEDS ORDERED: ATORVASTATIN 80 MG TAB PO SCH (09:00)
[2022-01-20] MEDS ORDERED: ASPIRIN 325 MG TAB PO SCH (09:00)
[2022-01-20 09:44] LABS: Basophils # (A) 0.03 X 10*3/uL (0.00-0.10); Basophils % (A) 0.5 %; Eosinophils # (A) 0.07 X 10*3/uL (0.04-0.35); Eosinophils % (A) 1.3 %; HCT 39.7 % (39.6-50.0); HGB 12.9 g/dL (13.0-17.0); Immature Grans, Automated 0.2 %; Lymphocytes % (A) 39.4 %; MCH 31.6 pg (27.0-32.0); MCHC 32.5 g/dL (32.0-37.0); MCV 97.3 fL (80.0-97.0); Mean Platelet Volume 9.9 fL (9.5-12.2); Monocytes % (A) 7.2 %; NRBC Per 100 WBC 0 /100 WBCS (0.0-0.0); Neutrophils # (A) 2.87 X 10*3/uL (1.80-7.70); Neutrophils % (A) 51.4 %; Platelet Count 189 X 10*3/uL (140-440); RBC 4.08 X 10*6/uL (4.40-5.60); RDW 12.9 % (11.5-14.5); WBC 5.58 X 10*3/uL (4.50-10.00)
[2022-01-20 09:55] LABS: African American GFR (CKD) 101.4 (60.0-200.0); Anion Gap 9.4 mmol/L (10.00-18.00); BUN/Creat Ratio 15.67 Ratio (12.00-20.00); Blood Urea Nitrogen 14.1 mg/dL (9.0-27.0); Calcium 8.7 mg/dL (8.7-10.3); Carbon Dioxide 23.6 mmol/L (20.0-27.5); Magnesium 2.1 mg/dL (1.5-2.4); Non-African American GFR(CKD) 87.5 (60.0-200.0); Potassium 4.4 mmol/L (3.5-5.5)
--- NOTE | 2022-01-20 12:45 | P.HPIM ---
History of Present Illness H&P Date: 01/20/22 Chief Complaint: Dizziness She is a 58-year-old male well-known to the practice who has a history of left- sided CVA. 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 He has dysarthria and his is at bedside speaking for him today. He denies any significant complaints at this time. He reports that a large amount of wax was found in his right ear and since removal he feels improved. He has a known history of hearing loss and uses hearing aids. He denies any chest pains, pressures, shortness breath, nausea or vomiting. Vital signs remained stable. He is afebrile. Labs were essentially normal CTA showed occlusion of the left ICA consistent with his surgical history. Right carotid shows mild plaque in the common carotid and the carotid bulb and proximal ICA. CT brain showed age-related atrophy and chronic small vessel changes without acute intracranial process. 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, migraines, VINICIUS with CPAP, chronic low back pain, varicose veins, gastritis, diverticulitis, colon polyps History of Any Multi-Drug Resistant Organisms: None Reported Additional Past Surgical History / Comment(s): hiatal hernia repair, 2013 EGD with bx, colonoscopies/benign polypectomies Past Anesthesia/Blood Transfusion Reactions: No Reported Reaction Past Psychological History: No Psychological Hx Reported Additional Psychological History / Comment(s): spouse states possible anxiety and depression Smoking Status: Former smoker Past Alcohol Use History: None Reported Additional Past Alcohol Use History / Comment(s): hx of social smoker, quit over 10 yrs ago per spouse Past Drug Use History: None Reported - Past Family History Father Family Medical History: Cancer Additional Family Medical History / Comment(s): ?bladder cancer Mother Family Medical History: No Reported History, Cancer Additional Family Medical History / Comment(s): skin cancer Brother(s) Family Medical History: Cancer Additional Family Medical History / Comment(s): skin cancer Medications and Allergies Home Medications Medication Instructions Recorded Confirmed Type Losartan Potassium 100 mg PO DAILY 04/24/20 01/19/22 History Aspirin EC [Ecotrin Low Dose] 81 mg PO DAILY 01/19/22 01/19/22 History Atorvastatin [Lipitor] 10 mg PO HS 01/19/22 01/19/22 History Escitalopram [Lexapro] 20 mg PO DAILY 01/19/22 01/19/22 History Memantine HCl [Namenda] 5 mg PO DAILY 01/19/22 01/19/22 History Tamsulosin [Flomax] 0.4 mg PO DAILY@1700 01/19/22 01/19/22 History Ticagrelor [Brilinta] 45 mg PO HS 01/19/22 01/19/22 History Allergies Allergy/AdvReac Type Severity Reaction Status Date / Time amoxicillin AdvReac Diarrhea Verified 01/19/22 15:48 Physical Exam Vitals: Vital Signs Temp Pulse Pulse Resp BP BP Pulse Ox 01/20/22 07:42 99 01/20/22 07:00 98.2 F 66 18 136/87 100 01/20/22 03:05 97.9 F 68 17 108/76 94 L 01/19/22 19:13 97.5 F L 70 18 113/66 98 01/19/22 15:17 68 16 134/74 98 01/19/22 15:00 97.9 F 75 18 125/66 97 Intake and Output 01/19/22 01/20/22 01/20/22 22:59 06:59 14:59 Intake Total 120 120 Balance 120 120 Intake: Oral 120 120 Other: Voiding Method Urinal # Voids 1 1 GENERAL: Well-appearing, well-nourished and in no acute distress. HEAD: Atraumatic, normocephalic. Ears: Left tympanic membrane is normal, canal minimally erythematous, right side shows a suppurative tympanic membrane with discharge, it is concave in appearance today. EYES: Pupils equal round and reactive to light, extraocular movements intact, there is a left eyelid droop, slight droop to the left coronary mouth sclera anicteric, conjunctiva are normal. ENT:nares patent, oropharynx clear without exudates. Moist mucous membranes. NECK: Normal range of motion, supple without lymphadenopathy or JVD, no thyromegaly LUNGS: Breath sounds clear to auscultation bilaterally and equal. No wheezes rales or rhonchi. HEART: Regular rate and rhythm without murmurs, rubs or gallops.S1S2 Normal ABDOMEN: Soft, nontender, normoactive bowel sounds. No guarding, no rebound. No masses appreciated. EXTREMITIES: Normal range of motion, no pitting or edema. No clubbing or cyanosis. NEUROLOGICAL: Cranial nerves II through XII show minimal deficit on the left side consistent with his CVA history [place] is dysarthric, normal gait. PSYCH: Normal mood, normal affect. SKIN: Warm, Dry, normal turgor, no rashes or lesions noted. Results CBC & Chem 7: 01/20/22 06:02 01/20/22 06:02 Labs: Abnormal Lab Results - Last 24 Hours (Table) 01/20/22 01/20/22 Range/Units 06:02 06:02 RBC 4.08 L (4.40-5.60) X 10*6/uL Hgb 12.9 L (13.0-17.0) g/dL MCV 97.3 H (80.0-97.0) fL Anion Gap 9.40 L (10.00-18.00) mmol/L Comments: Angiography CT was reviewed and is consistent with his surgical history. CT Scan - head: report reviewed Thrombosis Risk Factor Assmnt - DVT/VTE Prophylaxis DVT/VTE Prophylaxis: Low risk, early ambulation encouraged - Choose All That Apply Any of the Below Risk Factors Present?: No Each Risk Factor Represents 2 Points: Age 61-74 years Thrombosis Risk Factor Assessment Total Risk Factor Score: 2 Thrombosis Risk Factor Assessment Level: Low Risk Assessment and Plan (1) Right otitis media with effusion Current Visit: Yes Status: Acute Code(s): H65.91 - UNSPECIFIED NONSUPPURATIVE OTITIS MEDIA, RIGHT EAR SNOMED Code(s): 64343635 (2) H/O carotid endarterectomy Current Visit: Yes Status: Acute Code(s): Z98.890 - OTHER SPECIFIED POSTPROCEDURAL STATES SNOMED Code(s): 893587794 (3) CVA (cerebral vascular accident) Current Visit: Yes Status: Acute Code(s): I63.9 - CEREBRAL INFARCTION, UNSPECIFIED SNOMED Code(s): 690442361 (4) Hemiplegia Current Visit: Yes Status: Acute Code(s): G81.90 - HEMIPLEGIA, UNSPECIFIED AFFECTING UNSPECIFIED SIDE SNOMED Code(s): 91579819 (5) Dysarthria and anarthria Current Visit: Yes Status: Acute Code(s): R47.1 - DYSARTHRIA AND ANARTHRIA SNOMED Code(s): 385539933 (6) Dizziness Current Visit: Yes Status: Acute Code(s): R42 - DIZZINESS AND GIDDINESS SNOMED Code(s): 379588020 (7) ICAO (internal carotid artery occlusion) Current Visit: Yes Status: Acute Code(s): I65.29 - OCCLUSION AND STENOSIS OF UNSPECIFIED CAROTID ARTERY SNOMED Code(s): 354321885 Plan: I'll reduce restart his home medications and increase the doses per the recommendations of neurology. No neurology note is available to review at this time. Based on my findings of a right otitis media and the resolution of his dizziness with the wax removal, I will place him on ciprofloxacin HC drops 3 drops twice a day in the right ear. If cleared he could probably be discharged today, and followed up outpatient for that MRI of the brain recommended by them.
--- NOTE | 2022-01-20 12:53 | P.DS ---
Providers Date of admission: 01/19/22 14:04 Expected date of discharge: 01/20/22 Attending physician: Jefferson Horowitz Consults: 01/19/22 17:20 Consult Physician Routine Consulting Provider: Jazzmine Carlton Consult Reason/Comments: ICA occlusion, h/o CVA Do you want consulting provider notified?: Yes Primary care physician: Garret Gray - Discharge Diagnosis(es) (1) Right otitis media with effusion Current Visit: Yes Status: Acute (2) H/O carotid endarterectomy Current Visit: Yes Status: Acute (3) CVA (cerebral vascular accident) Current Visit: Yes Status: Acute (4) Hemiplegia Current Visit: Yes Status: Acute (5) Dysarthria and anarthria Current Visit: Yes Status: Acute (6) Dizziness Current Visit: Yes Status: Acute (7) ICAO (internal carotid artery occlusion) Current Visit: Yes Status: Acute Hospital Course: he is a 58-year-old male well-known to the practice who has a history of left- sided CVA. 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 He has dysarthria and his is at bedside speaking for him today. He denies any significant complaints at this time. He reports that a large amount of wax was found in his right ear and since removal he feels improved. He has a known history of h earing loss and uses hearing aids. He denies any chest pains, pressures, shortness breath, nausea or vomiting. Vital signs remained stable. He is afebrile. Labs were essentially normal CTA showed occlusion of the left ICA consistent with his surgical history. Right carotid shows mild plaque in the common carotid and the carotid bulb and proximal ICA. CT brain showed age-related atrophy and chronic small vessel changes without acute intracranial process. 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 01/20/2022: Case was discussed with his nurse. She scheduled a recheck out to neurology as the neurology note is not in the chart. This appears to be dizziness is related to right otitis media. Patient is back to his baseline. He felt symptom relief upon earwax removal yesterday. His urine exam today shows a separative otitis media. His strength and exam is at his baseline at this time. He may need an MRI outpatient based on neurology recommendations Patient Condition at Discharge: Stable Plan - Discharge Summary Discharge Rx Participant: Yes New Discharge Prescriptions: New Aspirin 325 mg PO DAILY tab Ciprofloxacin-Dexameth [Ciprodex Otic Susp] 4 drops RIGHT EAR BID ml Continue Losartan Potassium 100 mg PO DAILY Aspirin EC [Ecotrin Low Dose] 81 mg PO DAILY Ticagrelor [Brilinta] 45 mg PO HS Tamsulosin [Flomax] 0.4 mg PO DAILY@1700 Memantine HCl [Namenda] 5 mg PO DAILY Escitalopram [Lexapro] 20 mg PO DAILY Atorvastatin [Lipitor] 10 mg PO HS Discharge Medication List Losartan Potassium 100 mg PO DAILY 04/24/20 [History] Aspirin EC [Ecotrin Low Dose] 81 mg PO DAILY 01/19/22 [History] Atorvastatin [Lipitor] 10 mg PO HS 01/19/22 [History] Escitalopram [Lexapro] 20 mg PO DAILY 01/19/22 [History] Memantine HCl [Namenda] 5 mg PO DAILY 01/19/22 [History] Tamsulosin [Flomax] 0.4 mg PO DAILY@1700 01/19/22 [History] Ticagrelor [Brilinta] 45 mg PO HS 01/19/22 [History] Aspirin 325 mg PO DAILY tab 01/20/22 [Rx] Ciprofloxacin-Dexameth [Ciprodex Otic Susp] 4 drops RIGHT EAR BID ml 01/20/22 [Rx] Follow up Appointment(s)/Referral(s): Garret Gray Jr, [Primary Care Provider] - 1-2 days Discharge Disposition: HOME SELF-CARE
[2022-01-20] MEDS ORDERED: CIPROFLOXACIN-DEXAMETH 0.3-0.1% DROPS 7.5 ML BTL RIGHT EAR SCH (13:00)
[2022-01-20] MEDS ORDERED: TAMSULOSIN 0.4 MG CAP.ER.24H PO SCH (17:00)
--- NOTE | 2022-01-22 14:08 | P.CNNES ---
History of Present Illness Consult date: 01/20/22 Reason for Consult: Dizziness History of Present Illness: The patient is a 66-year-old male who is seen in neurologic consultation on January 20, 2022, via teleneurology. The patient reports that he has been feeling very off balance and dizzy. His gait has been unsteady. He has been needing to hold onto the srinivasan, to walk. History is obtained from the patient's , who is present at the bedside. 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 He has dysarthria. He denies any significant complaints at this time. He reports that a large amount of wax was found in his right ear and since removal he feels improved. He has a known history of hearing loss and uses hearing aids. He denies any chest pains, pressures, shortness breath, nausea or vomiting. CTA showed occlusion of the left ICA consistent with his surgical history. Right carotid shows mild plaque in the common carotid and the carotid bulb and proximal ICA. CT brain showed age-related atrophy and chronic small vessel changes without acute intracranial process. 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, migraines, VINICIUS with CPAP, chronic low back pain, varicose veins, gastritis, diverticulitis, colon polyps History of Any Multi-Drug Resistant Organisms: None Reported Additional Past Surgical History / Comment(s): hiatal hernia repair, 2013 EGD with bx, colonoscopies/benign polypectomies Past Anesthesia/Blood Transfusion Reactions: No Reported Reaction Past Psychological History: No Psychological Hx Reported Additional Psychological History / Comment(s): spouse states possible anxiety and depression Smoking Status: Former smoker Past Alcohol Use History: None Reported Additional Past Alcohol Use History / Comment(s): hx of social smoker, quit over 10 yrs ago per spouse Past Drug Use History: None Reported - Past Family History Father Family Medical History: Cancer Additional Family Medical History / Comment(s): ?bladder cancer Mother Family Medical History: No Reported History, Cancer Additional Family Medical History / Comment(s): skin cancer Brother(s) Family Medical History: Cancer Additional Family Medical History / Comment(s): skin cancer Medications and Allergies Home Medications Medication Instructions Recorded Confirmed Type Losartan Potassium 100 mg PO DAILY 04/24/20 01/19/22 History Aspirin EC [Ecotrin Low Dose] 81 mg PO DAILY 01/19/22 01/19/22 History Atorvastatin [Lipitor] 10 mg PO HS 01/19/22 01/19/22 History Escitalopram [Lexapro] 20 mg PO DAILY 01/19/22 01/19/22 History Memantine HCl [Namenda] 5 mg PO DAILY 01/19/22 01/19/22 History Tamsulosin [Flomax] 0.4 mg PO DAILY@1700 01/19/22 01/19/22 History Ticagrelor [Brilinta] 45 mg PO HS 01/19/22 01/19/22 History Aspirin 325 mg PO DAILY tab 01/20/22 Rx Ciprofloxacin-Dexameth [Ciprodex 4 drops RIGHT EAR BID ml 01/20/22 Rx Otic Susp] Allergies Allergy/AdvReac Type Severity Reaction Status Date / Time amoxicillin AdvReac Diarrhea Verified 01/19/22 15:48 Physical Examination Gen: The patient is reclining in the bed. He is well-nourished, well-developed and in no acute distress. HEENT: Head is atraumatic, normocephalic. Fundus not visualized. There is no scleral icterus. Mucous membranes are moist. Neck: Supple, with a left carotid bruit Heart: Regular rate and rhythm Extremities: Without edema Neurological examination Mental status: Patient is awake, alert and oriented 3. His speech is clear. There is no dysarthria or aphasia. Cranial nerves: Pupils are equal at 2 mm and reactive. Visual chan are full to confrontation. Extraocular movements are intact. There is no nystagmus. Facial sensation is intact. There is a right facial droop. Hearing is grossly intact. Uvula and palate are midline. Shoulder shrug is symmetric. Tongue protrudes midline. Motor: Strength is 5/5 throughout Coordination: Finger to nose and rapid alternating movements are intact Sensation: Intact to light touch throughout Deep tendon reflexes: 3+/4+ in the right upper extremity. Left upper extremity 2+/4+. Bilateral patellar reflexes 1+/4+. Gait: Not assessed however, the patient reportedly had a steady gait on his way to the bathroom this morning Results - Laboratory Findings CBC and BMP: 01/20/22 06:02 01/20/22 06:02 Abnormal Lab Findings: Abnormal Labs 01/19/22 01/20/22 01/20/22 11:46 06:02 06:02 RBC 4.08 L Hgb 12.9 L MCV 97.3 H Chloride 109 H Anion Gap 9.40 L Assessment and Plan Assessment: 1. Ataxia-likely secondary to reported right otitis media with effusion 2. History of cerebral infarct with carotid dissection and clot removal Plan: 1. Continue medications-aspirin, Brilinta and statin for further stroke prevention 2. Interventional Neurology follow-up per schedule Thank you for allowing me to participate in care of this patient Time with Patient: Greater than 30 (Spent 35 minutes examining patient. An additional 25 minutes was spent reviewing imaging reports, labs, documentation and preparing this note)
== END 2022-01-20 13:40 | disposition home or self-care (01) ==
LOC: EC 09:13 → 6NMEDSUR 14:04
PROVIDERS: ADMIT Family Medicine; ATTEND Family Medicine
DX: H65.91 Unspecified nonsuppurative otitis media, right ear (principal); I65.22 Occlusion and stenosis of left carotid artery; I10 Essential (primary) hypertension; I69.320 Aphasia following cerebral infarction; I69.351 Hemiplegia and hemiparesis following cerebral infarction affecting right dominant side; I69.322 Dysarthria following cerebral infarction; N40.0 Benign prostatic hyperplasia without lower urinary tract symptoms; G43.909 Migraine, unspecified, not intractable, without status migrainosus; G47.33 Obstructive sleep apnea (adult) (pediatric); G89.29 Other chronic pain; M54.50 Low back pain, unspecified; K21.9 Gastro-esophageal reflux disease without esophagitis; K57.90 Diverticulosis of intestine, part unspecified, without perforation or abscess without bleeding; K59.00 Constipation, unspecified; I83.90 Asymptomatic varicose veins of unspecified lower extremity; H91.90 Unspecified hearing loss, unspecified ear; R27.0 Ataxia, unspecified; Z79.82 Long term (current) use of aspirin; Z79.02 Long term (current) use of antithrombotics/antiplatelets; Z79.899 Other long term (current) drug therapy; Z88.0 Allergy status to penicillin; Z97.4 Presence of external hearing-aid; Z98.890 Other specified postprocedural states; Z87.19 Personal history of other diseases of the digestive system; Z86.010 Personal history of colon polyps; Z87.891 Personal history of nicotine dependence; Z86.718 Personal history of other venous thrombosis and embolism; Z80.8 Family history of malignant neoplasm of other organs or systems
CPT/HCPCS: 96361 ×2; 96360; 99285; 36415; 94760; 93005; 80053; 80048; 83735 ×2; 84484; 85025 ×2; 85610; 70496; 70450; 70498; G0378 ×2; Q9967